=== PATIENT | male | born 1960 | race Caucasian/White ===

== ENCOUNTER 2016-08-29 20:30 | Inpatient (IN) | payer BC ==
[2016-08-29] MEDS ORDERED: NORMAL SALINE 10 ML SYRINGE FLUSH IVP PRN (21:31)
[2016-08-29] MEDS ORDERED: Sodium Chloride 0.9% 2,000 ML PRIMARY IV ONE (21:31)
[2016-08-29] MEDS ORDERED: MORPHINE SULFATE 4 MG/1 ML IVP ONE (21:31)
[2016-08-29] MEDS ORDERED: ONDANSETRON 4 MG/2 ML VIAL IVP ONE (21:32)
--- NOTE | 2016-08-29 21:34 | PDOC ---
Gen Adult / Medical Screen HPI - General Chief Complaint: General Medical Stated Complaint: ABDOMEN PAIN WITH POOR APETITE AND UNABLE TO VOID Date Seen by Provider: 08/29/16 Time Seen by Provider: 21:28 - History of Present Illness Initial Comments: Patient's very nice 56-year-old presents to the emergency department with complaints of inability to void. He's also had difficulty with some constipation lately. He's been trying not to drink much as he has difficulty voiding when he wants to PE and feels that it makes him uncomfortable so he doesn't do so. He says he has a red or pink tinged to his urinary does PE. He denies any zeeshan drainage or purulence from his penis. No significant testicular pain or issues no significant hematochezia hematemesis. He is not nauseated or vomiting. He denies any longer heart or chest issues. Has had some low-grade fever and felt chilled at times. - Patient Home Medications Home Medications: Home Medications NK [No Home Medications Reported] 08/29/16 - Patient Allergies Allergies/Adverse Reactions: Allergies Allergy/AdvReac Type Severity Reaction Status Date / Time No Known Allergies Allergy Verified 08/29/16 21:00 Past Medical History - heen HEENT History: Denies History Cardiovascular History: Denies History Respiratory History: Denies History Gastrointestinal History: Denies History Genitourinary History: Denies History Endocrine History: Denies History Musculoskeletal History: Denies History Neurological History: Denies History Blood Disorders: Denies History Psychiatric History: Denies History History of Sexually Transmitted Diseases: No Male Reproductive History: Denies History Cancer History: Denies History In Past Year Been Physically Harmed or Verbally Threatened: No History of MDRO: No History of Other Communicable Diseases: No Tobacco Use: Never Smoker Alcohol Use: Other Substance Use Type: None Previous Surgical History: No Significant Family History: No pertinent family hx Past Medical History Reviewed: Reviewed - No Changes ROS - Limitations ROS Limitations: No Limitations Cardiovascular: REPORTS: Denies Cardiac Symptoms Respiratory: REPORTS: Denies Resp Symptoms Neurological: REPORTS: Denies Neuro Symptoms Gen Adult/Medical Screen Exam - General Appearance General Appearance: POSITIVE: Alert, Cooperative - HEENT HEENT: POSITIVE: Head Inspection Nml, Eyes Inspection Nml - Neck Neck: POSITIVE: Normal Inspection - Respiratory Respiratory: POSITIVE: No Respiratory Distress, Breath Sounds Normal - Cardiovascular Cardiovascular: POSITIVE: Regular Rate & Rhythm, No Murmur - Abdomen Additional Abdominal Details: Significant tenderness in the low abdomen with some guarding in both right and left lower quadrants. Genitalia are benign testicles are benign no hernias noted Gen Adlt/Medical Scrn Progress - Results Reviewed by me Xrays/CTs/US Reviewed by me: Yes Radiology Findings: Acute diverticulitis Lab Results Reviewed: Yes Lab Results:: Laboratory Results 08/29/16 08/29/16 Range/Units 21:00 21:34 WBC 11.31 H (4.8-10.8) 10^3/uL RBC 5.09 (4.70-6.10) 10^6/uL Hgb 15.0 (14.0-18.0) g/dL Hct 44.1 (42.0-52.0) % MCV 86.6 (80-90) FL MCH 29.5 (27-31) PG MCHC 34.0 (33-37) g/dL RDW Std Deviation 40.8 (39-50) fL RDW Coeff of Mateus 13.1 (11.5-14.5) % Plt Count 226 (140-350) 10*3/uL MPV 9.4 (7.4-12.2) FL Immature Gran % (Auto) 0.3 (0-5) % Neut % (Auto) 84.0 H (50-80) % Lymph % (Auto) 7.5 L (10-50) % [place] % (Auto) 8.0 (5-15) % Eos % (Auto) 0 (0-8) % Baso % (Auto) 0.2 (0-1) % Immature Gran # (Auto) 0.03 10*3/UL Neut # (Auto) 9.51 10*3/UL Lymph # (Auto) 0.85 10*3/uL [place] # (Auto) 0.90 H (0.3-0.8) 10*3/UL Eos # (Auto) 0 10*3/UL Baso # (Auto) 0.02 10*3/UL WBC Morphology Comment Normal morphology (NORM) Plt Morphology Comment Normal morphology (NORM) RBC Morph Comment Normal morphology (NORM) Sodium 139 (135-145) meq/L Potassium 4.0 (3.8-5.2) meq/L Chloride 101 (98-112) meq/L Carbon Dioxide 28 (23-33) meq/L Anion Gap 10 (5-20) BUN 16 (7-22) mg/dL Creatinine 0.9 (0.70-1.50) mg/dL Estimated GFR > 60 (>60 ml/min/1.73m(2)) BUN/Creatinine Ratio 17.77 (6-20) Glucose 95 (78-110) mg/dL Calculated Osmolality 288.0 (267-292) mOsm/kg Lactic Acid 0.6 L (0.70-2.10) MMOL/L Calcium 8.9 (8.7-10.7) mg/dL Total Bilirubin 2.1 H (0.3-1.2) mg/dL AST 16 L (21-57) IU/L ALT 30 (21-72) IU/L Alkaline Phosphatase 58 (38-126) IU/L Total Protein 7.0 (6.1-8.0) g/dL Albumin 4.0 (3.5-4.8) g/dL Globulin 3.0 (2.50-4.10) g/dL Albumin/Globulin Ratio 1.30 (1.3-2.0) mg/g Ur Collection Type Void Urine Color Lindsay Urine Clarity Clear (CLEAR) Urine pH 5.5 (5.0-8.5) Ur Specific [place] 1.020 (1.005-1.030) Urine Protein 30 (NEG) mg/dl Urine Glucose (UA) Negative (NEG) mg/dL Urine Ketones 80 (NEG) Urine Occult Blood Trace-lysed H (NEG) Urine Nitrate Positive H (NEG) Urine Bilirubin Moderate (NEG) Urine Urobilinogen 4.0 (0.2) EU/dL Ur Leukocyte Esterase Negative (NEG) Urine RBC 0-1 (NONE) /hpf Urine WBC 3-5 (NONE) Ur Squamous Epith Cells None (NONE) Ur Renal Epithelial Cell None (NONE) Urine Crystals None Urine Bacteria Moderate (NONE) Urine Casts None (NONE) Urine Mucus Many (NONE) Urine Trichomonas None (NONE) Urine Yeast None (NONE) Ur Culture Indicated? Culture set - Patient's Progress MDM / ED Course: This patient had significant left abdominal discomfort and high white blood cell count with left shift urinalysis was obtained and was mildly positive certainly didn't seem strong enough to be the source of all of his symptoms therefore CT scan of his abdomen was performed which shows a diverticulitis with possible small microperforation. Case was discussed with general surgeon cable television installer who agrees to see the patient in consult in the morning and recommended admission through the hospitalist. Hospitalist agreed to accept the patient for admission. Patient was given a 1 g Invanz dose after blood cultures and urinalysis had been obtained patient was given morphine for pain control. Patient Care Time - Estimated PCT Patient Care Time (In Minutes): 45 Vital Signs - Recent Vital Signs Vital Signs: Vital Signs (Last 8 hours) Temp Pulse Resp BP Pulse Ox 08/29/16 20:45 100.3 F H 87 18 148/84 96 - VS Reviewed Vital Signs Reviewed: Yes Discharge Clinical Impression: Acute diverticulitis Discharge Disposition: Admit to Inpatient Condition: Stable Date Decision to Admit to Inpatient: 08/29/16 Time Decision to Admit to Inpatient: 23:52
[2016-08-29 21:40] LABS: BASOPHILS # (AUTO) 0.02 10*3/UL; BASOPHILS % (AUTO) 0.2 % (0-1); EOSINOPHILS # (AUTO) 0 10*3/UL; EOSINOPHILS % (AUTO) 0 % (0-8); HEMATOCRIT 44.1 % (42.0-52.0); LYMPHOCYTES # (AUTO) 0.85 10*3/uL; MEAN CORPUSCULAR HEMOGLOBIN 29.5 PG (27-31); MEAN CORPUSCULAR VOLUME 86.6 FL (80-90); MEAN PLATELET VOLUME 9.4 FL (7.4-12.2); NEUTROPHILS # (AUTO) 9.51 10*3/UL; PLATELET MORPHOLOGY COMMENT NORMAL MORPHOLOGY (NORM); RBC MORPHOLOGY COMMENT NORMAL MORPHOLOGY (NORM); RED BLOOD COUNT 5.09 10^6/uL (4.70-6.10); WBC MORPHOLOGY COMMENT NORMAL MORPHOLOGY (NORM)
[2016-08-29 21:40] LABS: BILIRUBIN,URINE MODERATE (NEG); CLARITY,URINE CLEAR (CLEAR); GLUCOSE, URINE (UA) NEGATIVE (NEG); NITRATE,URINE POSITIVE (NEG); OCCULT BLOOD,URINE Trace-lysed (NEG); PH,URINE 5.5 (5.0-8.5); PROTEIN,URINE 30 mg/dl (NEG)
[2016-08-29 21:42] LABS: COLOR,URINE AMBER
[2016-08-29 21:43] LABS: BACTERIA,URINE MODERATE; RBC,URINE 0-1 /hpf; URINE SAMPLE TYPE VOID
[2016-08-29 21:43] LABS: BLOOD UREA NITROGEN 16 mg/dL (7-22); BUN/CREATININE RATIO 17.77 (6-20); CALCIUM 8.9 mg/dL (8.7-10.7); EST GLOMERULAR FILTRATION > 60 (>60 ml/min/1.73m(2))
[2016-08-29] MEDS ORDERED: Lactated Ringers 1,000 ML PRIMARY IV ONE (22:16)
[2016-08-29] MEDS ORDERED: Ertapenem Inj 1 GM in Sodium Chloride 0.9% 100 ML IV ONE (22:22)
--- NOTE | 2016-08-29 23:26 | DI ---
HISTORY: Bilateral lower abdominal and pelvic pain and leukocytosis. PREVIOUS EXAM: None at this facility. TECHNIQUE: Multiple helically acquired CT images are obtained through the abdomen and pelvis followi ng the intravenous administration of contrast media. FINDINGS: CT images demonstrate acute sigmoid diverticulitis. There appears to be a contained perfor ation, but there is no free air and no abscess at this time. Inflammatory changes also involve the ur inary bladder. There is a large simple cyst involving the right posterior kidney measuring 5.1 cm in length. Skeletal structures demonstrate diffuse degenerative changes without fractures. IMPRESSION: 1. Acute sigmoid diverticulitis with what appears to be a contained perforation, but no abscess at t his time.
[2016-08-30] MEDS ORDERED: ONDANSETRON 4 MG/2 ML VIAL IVP PRN (00:43)
[2016-08-30] MEDS ORDERED: LIDOCAINE W/ SODIUM BICARB 0.5 ML SYR SUBD PRN (00:43)
[2016-08-30] MEDS: HYDROmorphone 2 MG/1 ML IVP PRN ×3 (01:22→08:31)
[2016-08-30] MEDS: Sodium Chloride 0.9% 1,000 ML PRIMARY IV SCH ×3 (01:23→17:20)
[2016-08-30 05:24] LABS: BASOPHILS # (AUTO) 0.02 10*3/UL; BASOPHILS % (AUTO) 0.2 % (0-1); EOSINOPHILS # (AUTO) 0.01 10*3/UL; EOSINOPHILS % (AUTO) 0.1 % (0-8); HEMATOCRIT 42.2 % (42.0-52.0); HEMOGLOBIN 13.8 g/dL (14.0-18.0); LYMPHOCYTES # (AUTO) 1.09 10*3/uL; MEAN CORPUSCULAR HEMOGLOBIN 28.6 PG (27-31); MEAN CORPUSCULAR HGB CONC 32.7 g/dL (33-37); MEAN CORPUSCULAR VOLUME 87.4 FL (80-90); MEAN PLATELET VOLUME 9.8 FL (7.4-12.2); MONOCYTES % (AUTO) 9.1 % (5-15); NEUTROPHILS # (AUTO) 8.89 10*3/UL; NEUTROPHILS % (AUTO) 80.6 % (50-80); RED BLOOD COUNT 4.83 10^6/uL (4.70-6.10)
[2016-08-30 05:27] LABS: PLATELET MORPHOLOGY COMMENT NORMAL MORPHOLOGY (NORM); RBC MORPHOLOGY COMMENT NORMAL MORPHOLOGY (NORM); WBC MORPHOLOGY COMMENT NORMAL MORPHOLOGY (NORM)
[2016-08-30 05:43] LABS: BLOOD UREA NITROGEN 12 mg/dL (7-22); CALCIUM 8.2 mg/dL (8.7-10.7); EST GLOMERULAR FILTRATION > 60 (>60 ml/min/1.73m(2)); SERUM ALBUMIN 3.1 g/dL (3.5-4.8)
--- NOTE | 2016-08-30 08:17 | DI ---
CHEST X-RAY WITH ABDOMINAL SERIES, 08/29/2016 9:33 PM : Clinical History: Acute low abdominal pain. PA CHEST X-RAY: Previous Exam: 07/18/2015 There is no acute soft tissue or bony abnormality. There is no free air under the diaphragms. Heart s ize is normal. Lungs are clear. Mediastinal structures are normal. There are no pulmonary nodules. Reading: Normal PA chest x-ray. There has been no interval change. ABDOMINAL SERIES: Previous Exam: None at this facility. KUB and upright abdomen films are submitted. There are no soft tissue or bony abnormalities. Bowel ga s pattern, psoas margins, and flank stripes are normal. There is no free air or fluid. There are no a bnormal radiodensities. Reading: Normal abdominal series.
[2016-08-30] MEDS: Pantoprazole Inj 40 MG in Normal Saline Flush 10 ML IVP SCH (08:31)
[2016-08-30] MEDS: HYDROcodone-APAP 5 MG -325 MG TABLET PO PRN ×4 (08:32→21:22)
[2016-08-30] MEDS ORDERED: POLYETHYLENE GLYCOL 3350 17 GM POWDER PO ONE (11:12)
[2016-08-30] MEDS ORDERED: TAMSULOSIN 0.4 MG CAPSULE PO ONE (11:12)
--- NOTE | 2016-08-30 11:18 | PDOC ---
History and Physical - History of Present Illness Date and Time of Service: 08/30/2016, 11:15 Chief Complaint: Abdominal pain History of Present Illness: This very pleasant 56-year-old male who has really no past medical history that is a cavity by his and came in yesterday to the emergency room with complaints of lower abdominal pain for 3-4 days. He states that he felt some lower abdominal pressure, had a fever at one point, no nausea or vomiting, but states that eating and drinking made it worse. He is had similar pains in the past and she "constipation and thought he needed to pass a hard stool here but that did not seem to help the pain at all. After having a bowel movement and essentially crawling into bed the patient's thought that he needed evaluation and brought him in the next day. In the emergency room, he had an acute abdominal series, and his CT scan and was found to have sigmoid diverticulitis with what appears to be a microperforation that has walled off. He was placed on Invanz and surgery was contacted. They will see him later today in consultation. He's never had anything like this happen before. Seems to feel better today with some pain medications and IV antibiotics. Past Medical History Medical History: None Surgical History: None Pertinent Family History: The patient has an aunt that had colon cancer in the past, no history of diabetes or coronary artery disease in the family. Past Social History: Chews tobacco daily, 2 beers daily, 3. His that he is to now his primary 2 for 13 years. 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 Tobacco Use: Never Smoker Do you dip or chew tobacco: Yes Substance Use Type: None Alcohol Use: Other (Moderate alcohol use) Medication / Allergies Home Medications: Home Medications Medication Instructions Recorded Confirmed Type NK [No Home Medications Reported] 08/29/16 08/29/16 History Allergies/Adverse Reactions: Allergies Allergy/AdvReac Type Severity Reaction Status Date / Time No Known Allergies Allergy Verified 08/30/16 06:24 Review of Systems - Review of Systems All Systems: Reviewed & No Additional Complaints Except as Stated (I did a 12 point review systems and it was negative other than that discussed in the history of present illness and that noted below.) - Respiratory Respiratory: REPORTS: Negative System Review - Cardiovascular Cardiovascular: REPORTS: Negative System Review - Gastrointestinal Gastrointestinal / Abdominal: REPORTS: See HPI - Genitourinary Genitourinary: REPORTS: Hesitant Stream, Decreased Stream, Sexual Dyfunction ( Complains of loss of sexual drive, some difficulty with erections.) - Musculoskeletal Musculoskeletal: REPORTS: Other (Has stiffness in joints.) - Neurological Neurologic: REPORTS: Headache (On occasion.), Numbness/Paresthesia (Patient reports that he had facial numbness on the right side for about 3 months and then it resolved and got better. He had a negative head CT scan and workup for potential stroke. 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 It resolved and got better.) Exam - Vitals Vital Signs: Vital Signs Temperature 98.8 F Temperature Source Temporal Artery Scan Pulse Rate [Pulse Oximeter] 72 Respiratory Rate 16 Blood Pressure [Left Arm] 125/68 Pulse Ox 92 Oxygen Delivery Method Room Air Height 5 ft 9 in Weight 169 lb 9.6 oz - General General Appearance: POSITIVE: No Acute Distress, Cooperative - Head Head Exam: POSITIVE: Normal Inspection, Normocephalic, Atraumatic - Eye Eye Exam: POSITIVE: No Scleral Icterus - ENT ENT Exam: POSITIVE: Mucous Membranes Moist - Neck Neck Exam: POSITIVE: Normal Inspection, No Tenderness, No Thyromegaly - Respiratory Respiratory Exam: POSITIVE: Clear to Auscultation - Bilaterally, Breathing Non Labored, Normal to Percussion and Palpation - Cardiovascular Cardiovascular Exam: POSITIVE: RRR, No Murmur, No Clicks, No Gallops, No Rubs, No JVD - GI/Abdominal GI/Abdominal Exam: POSITIVE: Normal Bowel Sounds, Non Distended, Soft Additional GI/Abdominal Exam Details: Tender in lower quadrants, left greater than right. - Rectal Rectal Exam: POSITIVE: Normal Inspection, Normal Rectal Tone, Normal Prostate - External Exam: POSITIVE: Deferred Exam: POSITIVE: Deferred - Extremities Extremities Exam: POSITIVE: No Clubbing Present, No Edema Present, No Cyanosis Present - Back Back Exam: POSITIVE: Normal Inspection, No CVA Tenderness - Neurological Neurological Exam: POSITIVE: Alert, Oriented x 3, No Facial Droop, Speech Intact / Clear, Moves All Extremities Equally - Psychiatric Psychiatric Exam: POSITIVE: Normal Affect, Normal Mood - Integumentary Integumentary Exam: POSITIVE: Normal Color, Warm, Dry, Intact Results - Labs CBC and BMP: 08/30/16 04:38 08/30/16 04:38 Labs - Last 24 Hours: Laboratory Results 08/30/16 Range/Units 04:38 WBC 11.02 H (4.8-10.8) 10^3/uL RBC 4.83 (4.70-6.10) 10^6/uL Hgb 13.8 L (14.0-18.0) g/dL Hct 42.2 (42.0-52.0) % MCV 87.4 (80-90) FL MCH 28.6 (27-31) PG MCHC 32.7 L (33-37) g/dL RDW Std Deviation 40.9 (39-50) fL RDW Coeff of Mateus 13.1 (11.5-14.5) % Plt Count 193 (140-350) 10*3/uL MPV 9.8 (7.4-12.2) FL Immature Gran % (Auto) 0.1 (0-5) % Neut % (Auto) 80.6 H (50-80) % Lymph % (Auto) 9.9 L (10-50) % [place] % (Auto) 9.1 (5-15) % Eos % (Auto) 0.1 (0-8) % Baso % (Auto) 0.2 (0-1) % Immature Gran # (Auto) 0.01 10*3/UL Neut # (Auto) 8.89 10*3/UL Lymph # (Auto) 1.09 10*3/uL [place] # (Auto) 1.00 H (0.3-0.8) 10*3/UL Eos # (Auto) 0.01 10*3/UL Baso # (Auto) 0.02 10*3/UL WBC Morphology Comment Normal morphology (NORM) Plt Morphology Comment Normal morphology (NORM) RBC Morph Comment Normal morphology (NORM) Sodium 138 (135-145) meq/L Potassium 4.0 (3.8-5.2) meq/L Chloride 106 (98-112) meq/L Carbon Dioxide 24 (23-33) meq/L Anion Gap 8 (5-20) BUN 12 (7-22) mg/dL Creatinine 0.8 (0.70-1.50) mg/dL Estimated GFR > 60 (>60 ml/min/1.73m(2)) BUN/Creatinine Ratio 15.00 (6-20) Glucose 85 (78-110) mg/dL Calculated Osmolality 284.0 (267-292) mOsm/kg Lactic Acid 0.6 L (0.70-2.10) MMOL/L Calcium 8.2 L (8.7-10.7) mg/dL Total Bilirubin 1.6 H (0.3-1.2) mg/dL AST 11 L (21-57) IU/L ALT 27 (21-72) IU/L Alkaline Phosphatase 48 (38-126) IU/L Total Protein 5.9 L (6.1-8.0) g/dL Albumin 3.1 L (3.5-4.8) g/dL Globulin 2.8 (2.50-4.10) g/dL Albumin/Globulin Ratio 1.10 L (1.3-2.0) mg/g - Imaging Status: Image Reviewed by Me (Acute abdominal series was done, my view negative chest x-ray and negative abdominal series. CT scan of the abdomen and pelvis was done. Radiologist felt that there was a sigmoid diverticuli that appeared to have a microperforation and was walled off.) Assessment and Plan - Patient Problems (1) Acute diverticulitis Current Visit: Yes Status: Acute (2) Perforation of sigmoid colon Current Visit: Yes Status: Acute (3) Benign prostatic hypertrophy Current Visit: Yes Status: Acute Qualifiers: Prostatic enlargement morphology: non-nodular Lower urinary tract symptom presence: symptoms present Qualified Description: Benign non- nodular prostatic hyperplasia with lower urinary tract symptoms Qualifier Code(s): (N40.1) Benign prostatic hyperplasia with lower urinary tract symptoms (4) History of Shepard's palsy Current Visit: Yes Status: Acute - Assessment / Plan Additional Assessment/Plan Details: Admit the patient. Invanz IV, may want to consider a course of 10-14 days of antibiotics. We can consider response to Invanz therapy before switching to by mouth antibiotics but may be in this particular case, we can consider IV antibiotics through the duration. We will see what Dr. Gonzalez thinks when he sees the patient as well. I think for the BPH symptoms, start Flomax and see how well that works. The patient mentioned some sexual dysfunction symptoms, check testosterone levels. He might be a very good candidate for Cialis for his prostate and the symptoms as well. Start MiraLAX for what sounds like constipation. No further workup for the history of Shepard's palsy. Encouraged tobacco cessation. Check labs tomorrow including white count. IV fluids and clear liquid diet for now. Patient is full code. I discussed above plan with patient and his and they agreed. Photo / Body Diagrams - Uploaded Photos Uploaded Photos:
[2016-08-30] MEDS ORDERED: HYDROmorphone 2 MG/1 ML IVP PRN (12:46)
--- NOTE | 2016-08-30 12:56 | CONSULT ---
Consult Note - Consult Consult Date: 08/30/16 Reason for Consult: PreOp Consulation : General Surgery Requesting Physician: Dr. Cesia Barbosa Primary Care Provider: Nabil Song MD - History of Present Illness History of Present Illness: Patient is a 56-year-old admitted through the ER last night for acute diverticulitis. I'm asked to see him in consultation. Patient reports he's had bowel problems for about the last year. He has diarrhea alternating with constipation. He has some cramping in his pelvis. He sees occasional blood on the toilet paper. He has had some voiding difficulty as well. He reports his urine has been orange and very dark. On Saturday he developed markedly increased lower abdominal pain and pressure. He felt feverish and had chills. He had some nausea without vomiting. He went to bed and got up and went to work on Saturday. After work he came into the emergency room for progressive pain. He was seen and evaluated. A CAT scan was done. This shows diverticulitis with a possible contained perforation. There is possibly some air extraluminal but it is difficult to tell whether this is just another large tic. There is pericolonic stranding. There is no free air, no free fluid, and no abscess cavity. There is some inflammation around the bladder as well. I personally reviewed this film with our local radiologist. White count was slightly elevated at 11.5. Patient was admitted to the hospitalist service I'm asked to see him for evaluation. Patient has never had a colonoscopy. He has an Aunt who had colon cancer. He has never had a bout of diverticulitis before. His last bowel movement was approximately 2 days ago. Reports he had small round stools. He feels he could have a bowel movement but is unable to. He last passed gas about 2 days ago as well. Review of Systems - Constitutional Constitutional: REPORTS: Fever/Chills - Gastrointestinal Gastrointestinal / Abdominal: REPORTS: Nausea, Diarrhea, Constipation, Abdominal Pain, Poor Appetite, Bright Red Blood Per Rectum, See HPI Past Medical History Medical History: No significant medical problems. Surgical History: No prior surgical procedures. Pertinent Family History: The patient has an aunt that had colon cancer in the past, no history of diabetes or coronary artery disease in the family. Past Social History: Chews tobacco daily, 2 beers daily, 3. His that he is to now his primary 2 for 13 years. 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 Tobacco Use: Never Smoker Do you dip or chew tobacco: Yes Substance Use Type: None Alcohol Use: Other (Moderate alcohol use) Medication / Allergies Home Medications: Home Medications Medication Instructions Recorded Confirmed Type NK [No Home Medications Reported] 08/29/16 08/29/16 History Allergies/Adverse Reactions: Allergies Allergy/AdvReac Type Severity Reaction Status Date / Time No Known Allergies Allergy Verified 08/30/16 06:24 Exam - Vitals Vital Signs: Vital Signs Temperature 97.2 F Temperature Source Temporal Artery Scan Pulse Rate [Pulse Oximeter] 70 Respiratory Rate 16 Blood Pressure [Left Arm] 118/68 Pulse Ox 91 Oxygen Delivery Method Room Air Height 5 ft 9 in Weight 76.929 kg - General General Appearance: POSITIVE: No Acute Distress, Cooperative - Respiratory Respiratory Exam: POSITIVE: Clear to Auscultation - Bilaterally, Breathing Non Labored - Cardiovascular Cardiovascular Exam: POSITIVE: RRR, No Murmur - GI/Abdominal GI/Abdominal Exam: POSITIVE: Non Distended, Soft, Guarding (Lower abdomen.), Diminished Bowel Sounds, Rebound (Suprapubic.) Additional GI/Abdominal Exam Details: He is very tender in the suprapubic region and left lower quadrant. He can relax his abdomen. He has guarding and mild rebound. There is a fullness but no discrete mass. There is no costovertebral angle tenderness. - Rectal Rectal Exam: POSITIVE: Deferred - Neurological Neurological Exam: POSITIVE: Alert, Oriented x 3 - Psychiatric Psychiatric Exam: POSITIVE: Normal Affect, Normal Mood - Integumentary Integumentary Exam: POSITIVE: Normal Color, Warm, Dry, Intact Results - Labs CBC and BMP: 08/30/16 04:38 08/30/16 04:38 Labs - Last 24 Hours: Laboratory Results 08/30/16 Range/Units 04:38 WBC 11.02 H (4.8-10.8) 10^3/uL RBC 4.83 (4.70-6.10) 10^6/uL Hgb 13.8 L (14.0-18.0) g/dL Hct 42.2 (42.0-52.0) % MCV 87.4 (80-90) FL MCH 28.6 (27-31) PG MCHC 32.7 L (33-37) g/dL RDW Std Deviation 40.9 (39-50) fL RDW Coeff of Mateus 13.1 (11.5-14.5) % Plt Count 193 (140-350) 10*3/uL MPV 9.8 (7.4-12.2) FL Immature Gran % (Auto) 0.1 (0-5) % Neut % (Auto) 80.6 H (50-80) % Lymph % (Auto) 9.9 L (10-50) % [place] % (Auto) 9.1 (5-15) % Eos % (Auto) 0.1 (0-8) % Baso % (Auto) 0.2 (0-1) % Immature Gran # (Auto) 0.01 10*3/UL Neut # (Auto) 8.89 10*3/UL Lymph # (Auto) 1.09 10*3/uL [place] # (Auto) 1.00 H (0.3-0.8) 10*3/UL Eos # (Auto) 0.01 10*3/UL Baso # (Auto) 0.02 10*3/UL WBC Morphology Comment Normal morphology (NORM) Plt Morphology Comment Normal morphology (NORM) RBC Morph Comment Normal morphology (NORM) Sodium 138 (135-145) meq/L Potassium 4.0 (3.8-5.2) meq/L Chloride 106 (98-112) meq/L Carbon Dioxide 24 (23-33) meq/L Anion Gap 8 (5-20) BUN 12 (7-22) mg/dL Creatinine 0.8 (0.70-1.50) mg/dL Estimated GFR > 60 (>60 ml/min/1.73m(2)) BUN/Creatinine Ratio 15.00 (6-20) Glucose 85 (78-110) mg/dL Calculated Osmolality 284.0 (267-292) mOsm/kg Lactic Acid 0.6 L (0.70-2.10) MMOL/L Calcium 8.2 L (8.7-10.7) mg/dL Total Bilirubin 1.6 H (0.3-1.2) mg/dL AST 11 L (21-57) IU/L ALT 27 (21-72) IU/L Alkaline Phosphatase 48 (38-126) IU/L Total Protein 5.9 L (6.1-8.0) g/dL Albumin 3.1 L (3.5-4.8) g/dL Globulin 2.8 (2.50-4.10) g/dL Albumin/Globulin Ratio 1.10 L (1.3-2.0) mg/g - Imaging Status: Image Reviewed by Me (With the radiologist.), Report Reviewed by Me Assessment and Plan - Patient Problems (1) Acute diverticulitis Current Visit: Yes Status: Acute Priority: High Diagnosis Date: 08/29/16 Comment: This is a significant bout of acute diverticulitis. There is a lot of inflammatory changes and possibly a contained perforation. See below. It is reasonable to try conservative therapy. I would recommend 4-5 days of IV antibiotics followed by a full 10 days of oral antibiotics. If all goes well he should follow up with me as an outpatient and we will plan colonoscopy in 6- 8 weeks. He should be seen in the office prior to completing his antibiotics. Based on the findings on the CT scan he should consider an elective colectomy in the future to avoid ongoing problems. If he deteriorates or fails to improve after 4-5 days of IV antibiotics will need to consider a colectomy with temporary colostomy. I would strongly consider a follow-up CT in 3-4 days to see if we are making progress unless his clinical exam is markedly improved at that time. I have discussed all the above and below in detail with the patient and Dr. Callaway. We will proceed as outlined. Patient understands I am leaving town tomorrow. Dr. Salinas we will look in on him in my absence. (2) Perforation of sigmoid colon Current Visit: Yes Status: Acute Priority: High Diagnosis Date: 08/29/16 Comment: Possible. It is unclear whether he has extraluminal gas or just multiple diverticuli. At any rate this is contained without free air, free fluid, or an obvious abscess. It should be amenable to a trial of conservative therapy.
[2016-08-30] MEDS: Ertapenem Inj 1 GM in Sodium Chloride 0.9% 100 ML IV SCH (21:00)
[2016-08-31] MEDS: Sodium Chloride 0.9% 1,000 ML PRIMARY IV SCH ×3 (01:00→18:31)
[2016-08-31] MEDS: HYDROcodone-APAP 5 MG -325 MG TABLET PO PRN ×5 (02:26→20:30)
[2016-08-31 05:12] LABS: BASOPHILS # (AUTO) 0.01 10*3/UL; BASOPHILS % (AUTO) 0.1 % (0-1); EOSINOPHILS # (AUTO) 0.02 10*3/UL; EOSINOPHILS % (AUTO) 0.2 % (0-8); HEMATOCRIT 38.4 % (42.0-52.0); HEMOGLOBIN 12.5 g/dL (14.0-18.0); LYMPHOCYTES # (AUTO) 0.85 10*3/uL; MEAN CORPUSCULAR HEMOGLOBIN 28.6 PG (27-31); MEAN CORPUSCULAR HGB CONC 32.6 g/dL (33-37); MEAN CORPUSCULAR VOLUME 87.9 FL (80-90); MEAN PLATELET VOLUME 9.8 FL (7.4-12.2); MONOCYTES # (AUTO) 0.67 10*3/UL (0.3-0.8); MONOCYTES % (AUTO) 7.5 % (5-15); NEUTROPHILS # (AUTO) 7.42 10*3/UL; NEUTROPHILS % (AUTO) 82.6 % (50-80); RED BLOOD COUNT 4.37 10^6/uL (4.70-6.10)
[2016-08-31 05:28] LABS: PLATELET MORPHOLOGY COMMENT NORMAL MORPHOLOGY (NORM); RBC MORPHOLOGY COMMENT NORMAL MORPHOLOGY (NORM); WBC MORPHOLOGY COMMENT NORMAL MORPHOLOGY (NORM)
[2016-08-31 05:40] LABS: BLOOD UREA NITROGEN 5 mg/dL (7-22); BUN/CREATININE RATIO 7.14 (6-20); EST GLOMERULAR FILTRATION > 60 (>60 ml/min/1.73m(2))
[2016-08-31] MEDS: Pantoprazole Inj 40 MG in Normal Saline Flush 10 ML IVP SCH (08:57)
[2016-08-31] MEDS: TAMSULOSIN 0.4 MG CAPSULE PO SCH (08:58)
[2016-08-31] MEDS ORDERED: POLYETHYLENE GLYCOL 3350 17 GM POWDER PO SCH (09:00)
[2016-08-31] MEDS ORDERED: POTASSIUM CHLORIDE 20 MEQ TAB PO ONE (10:26)
--- NOTE | 2016-08-31 11:05 | PDOC(PROG) ---
Date and Time of Service: 09/03/2016 at 1110 Interval History: Patient states that he is little bit better. Objective : Data - Labs CBC and BMP: 08/31/16 04:43 08/31/16 04:43 Labs - Last 24 Hours: Laboratory Results 08/31/16 Range/Units 04:43 WBC 8.98 (4.8-10.8) 10^3/uL RBC 4.37 L (4.70-6.10) 10^6/uL Hgb 12.5 L (14.0-18.0) g/dL Hct 38.4 L (42.0-52.0) % MCV 87.9 (80-90) FL MCH 28.6 (27-31) PG MCHC 32.6 L (33-37) g/dL RDW Std Deviation 40.8 (39-50) fL RDW Coeff of [place] 12.8 (11.5-14.5) % Plt Count 199 (140-350) 10*3/uL MPV 9.8 (7.4-12.2) FL Immature Gran % (Auto) 0.1 (0-5) % Neut % (Auto) 82.6 H (50-80) % Lymph % (Auto) 9.5 L (10-50) % [place] % (Auto) 7.5 (5-15) % Eos % (Auto) 0.2 (0-8) % Baso % (Auto) 0.1 (0-1) % Immature Gran # (Auto) 0.01 10*3/UL Neut # (Auto) 7.42 10*3/UL Lymph # (Auto) 0.85 10*3/uL [place] # (Auto) 0.67 (0.3-0.8) 10*3/UL Eos # (Auto) 0.02 10*3/UL Baso # (Auto) 0.01 10*3/UL WBC Morphology Comment Normal morphology (NORM) Plt Morphology Comment Normal morphology (NORM) RBC Morph Comment Normal morphology (NORM) Sodium 135 (135-145) meq/L Potassium 3.5 L (3.8-5.2) meq/L Chloride 105 (98-112) meq/L Carbon Dioxide 24 (23-33) meq/L Anion Gap 6 (5-20) BUN 5 L (7-22) mg/dL Creatinine 0.7 (0.70-1.50) mg/dL Estimated GFR > 60 (>60 ml/min/1.73m(2)) BUN/Creatinine Ratio 7.14 (6-20) Glucose 85 (78-110) mg/dL Calculated Osmolality 275.0 (267-292) mOsm/kg Calcium 8.0 L (8.7-10.7) mg/dL - Vital Signs Vital Signs and I&O: Vital Signs - Last Taken Temperature 98.8 F 08/31/16 09:00 Pulse Rate 64 08/31/16 09:00 Respiratory Rate 16 08/31/16 09:00 Blood Pressure 125/65 08/31/16 09:00 Pulse Ox 93 08/31/16 09:00 Intake and Output (24hr x 4 totals) 08/29/16 08/30/16 08/31/16 09/01/16 05:59 05:59 05:59 05:59 Intake Total 6129 Output Total 200 1850 800 Balance -200 3444 -800 Objective : Exam - General General Appearance: No Acute Distress, Cooperative - GI/Abdominal Additional GI/Abdominal Exam Details: Patient's abdomen is soft there is a fullness to the suprapubic area which is slightly tender. There is no true rebound Assessment and Plan - Patient Problems (1) Acute diverticulitis Current Visit: Yes Status: Acute Priority: High Diagnosis Date: 08/29/16 - Assessment / Plan Additional Assessment/Plan Details: I would continue the gentleman I liquid diet and also antibiotics
--- NOTE | 2016-08-31 14:04 | PDOC(PROG) ---
Date and Time of Service: 08/31/2016, 1404 Interval History: Feels better in terms of pain. Less nausea, no vomiting. No chest pain and no shortness of breath. Urinating frequently. Objective : Data - Labs CBC and BMP: 08/31/16 04:43 08/31/16 04:43 Labs - Last 24 Hours: Laboratory Results 08/31/16 Range/Units 04:43 WBC 8.98 (4.8-10.8) 10^3/uL RBC 4.37 L (4.70-6.10) 10^6/uL Hgb 12.5 L (14.0-18.0) g/dL Hct 38.4 L (42.0-52.0) % MCV 87.9 (80-90) FL MCH 28.6 (27-31) PG MCHC 32.6 L (33-37) g/dL RDW Std Deviation 40.8 (39-50) fL RDW Coeff of [place] 12.8 (11.5-14.5) % Plt Count 199 (140-350) 10*3/uL MPV 9.8 (7.4-12.2) FL Immature Gran % (Auto) 0.1 (0-5) % Neut % (Auto) 82.6 H (50-80) % Lymph % (Auto) 9.5 L (10-50) % [place] % (Auto) 7.5 (5-15) % Eos % (Auto) 0.2 (0-8) % Baso % (Auto) 0.1 (0-1) % Immature Gran # (Auto) 0.01 10*3/UL Neut # (Auto) 7.42 10*3/UL Lymph # (Auto) 0.85 10*3/uL [place] # (Auto) 0.67 (0.3-0.8) 10*3/UL Eos # (Auto) 0.02 10*3/UL Baso # (Auto) 0.01 10*3/UL WBC Morphology Comment Normal morphology (NORM) Plt Morphology Comment Normal morphology (NORM) RBC Morph Comment Normal morphology (NORM) Sodium 135 (135-145) meq/L Potassium 3.5 L (3.8-5.2) meq/L Chloride 105 (98-112) meq/L Carbon Dioxide 24 (23-33) meq/L Anion Gap 6 (5-20) BUN 5 L (7-22) mg/dL Creatinine 0.7 (0.70-1.50) mg/dL Estimated GFR > 60 (>60 ml/min/1.73m(2)) BUN/Creatinine Ratio 7.14 (6-20) Glucose 85 (78-110) mg/dL Calculated Osmolality 275.0 (267-292) mOsm/kg Calcium 8.0 L (8.7-10.7) mg/dL Objective : Exam - General General Appearance: No Acute Distress, Cooperative Additional General Exam Details: Vital Signs - Last Taken Temperature 98 F 08/31/16 13:00 Pulse Rate 59 L 08/31/16 13:00 Respiratory Rate 16 08/31/16 13:00 Blood Pressure 126/65 08/31/16 13:00 Pulse Ox 96 08/31/16 13:00 - Eye Eye Exam: No Scleral Icterus - Respiratory Respiratory Exam: Clear to Auscultation - Bilaterally, Breathing Non Labored - Cardiovascular Cardiovascular Exam: RRR, No Murmur, No Clicks, No Gallops, No Rubs, No JVD - GI/Abdominal GI/Abdominal Exam: Normal Bowel Sounds, Non Tender, Non Distended, Soft - Extremities Extremities Exam: No Clubbing Present, No Edema Present, No Cyanosis Present - Neurological Neurological Exam: Alert, Oriented x 3, No Facial Droop, Speech Intact / Clear, Moves All Extremities Equally Assessment and Plan - Patient Problems (1) Acute diverticulitis Current Visit: Yes Status: Acute Priority: High Diagnosis Date: 08/29/16 Comment: Date 2 of antibiotic therapy. 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 Probably stop fluids tomorrow if patient is tolerating a little better diet. Still on clears for now. I'd like to make sure the patient stays well hydrated. Today is day 2 of 10-14 of antibiotics. Eventual colonoscopy as an outpatient in 6-8 weeks. Thus far, no evidence that this is worsening or that the patient will require immediate or emergent surgery or percutaneous draining. Continue Flomax, I'd expect about a week before really starts to help. Check labs tomorrow. Photo / Body Diagrams - Uploaded Photos Uploaded Photos:
[2016-08-31] MEDS: Ertapenem Inj 1 GM in Sodium Chloride 0.9% 100 ML IV SCH (20:30)
[2016-09-01] MEDS: HYDROcodone-APAP 5 MG -325 MG TABLET PO PRN ×5 (01:14→21:08)
[2016-09-01] MEDS: Sodium Chloride 0.9% 1,000 ML PRIMARY IV SCH ×2 (02:08→11:29)
[2016-09-01 05:40] LABS: BASOPHILS # (AUTO) 0.01 10*3/UL; BASOPHILS % (AUTO) 0.1 % (0-1); EOSINOPHILS # (AUTO) 0.05 10*3/UL; EOSINOPHILS % (AUTO) 0.6 % (0-8); HEMATOCRIT 37.6 % (42.0-52.0); HEMOGLOBIN 12.3 g/dL (14.0-18.0); MEAN CORPUSCULAR HEMOGLOBIN 28.7 PG (27-31); MEAN CORPUSCULAR HGB CONC 32.7 g/dL (33-37); MEAN CORPUSCULAR VOLUME 87.9 FL (80-90); MEAN PLATELET VOLUME 9.9 FL (7.4-12.2); MONOCYTES # (AUTO) 0.57 10*3/UL (0.3-0.8); MONOCYTES % (AUTO) 7.3 % (5-15); NEUTROPHILS # (AUTO) 6.12 10*3/UL; RED BLOOD COUNT 4.28 10^6/uL (4.70-6.10)
[2016-09-01 05:51] LABS: BLOOD UREA NITROGEN 4 mg/dL (7-22); CALCIUM 8.2 mg/dL (8.7-10.7); EST GLOMERULAR FILTRATION > 60 (>60 ml/min/1.73m(2))
[2016-09-01 05:52] LABS: PLATELET MORPHOLOGY COMMENT NORMAL MORPHOLOGY (NORM); RBC MORPHOLOGY COMMENT NORMAL MORPHOLOGY (NORM); WBC MORPHOLOGY COMMENT NORMAL MORPHOLOGY (NORM)
[2016-09-01] MEDS ORDERED: POTASSIUM CHLORIDE 20 MEQ TAB PO ONE (06:33)
--- NOTE | 2016-09-01 08:45 | PDOC(PROG) ---
Date and Time of Service: 08/02/2016 at 845 Interval History: Patient states that he still little bit better. Denies and fevers had a bowel movement Objective : Data - Labs CBC and BMP: 09/01/16 04:50 09/01/16 04:50 Labs - Last 24 Hours: Laboratory Results 08/31/16 09/01/16 Range/Units 04:43 04:50 WBC 7.76 (4.8-10.8) 10^3/uL RBC 4.28 L (4.70-6.10) 10^6/uL Hgb 12.3 L (14.0-18.0) g/dL Hct 37.6 L (42.0-52.0) % MCV 87.9 (80-90) FL MCH 28.7 (27-31) PG MCHC 32.7 L (33-37) g/dL RDW Std Deviation 39.6 (39-50) fL RDW Coeff of [place] 12.6 (11.5-14.5) % Plt Count 215 (140-350) 10*3/uL MPV 9.9 (7.4-12.2) FL Immature Gran % (Auto) 0.1 (0-5) % Neut % (Auto) 79.0 (50-80) % Lymph % (Auto) 12.9 (10-50) % [place] % (Auto) 7.3 (5-15) % Eos % (Auto) 0.6 (0-8) % Baso % (Auto) 0.1 (0-1) % Immature Gran # (Auto) 0.01 10*3/UL Neut # (Auto) 6.12 10*3/UL Lymph # (Auto) 1.00 10*3/uL [place] # (Auto) 0.57 (0.3-0.8) 10*3/UL Eos # (Auto) 0.05 10*3/UL Baso # (Auto) 0.01 10*3/UL WBC Morphology Comment Normal morphology (NORM) Plt Morphology Comment Normal morphology (NORM) RBC Morph Comment Normal morphology (NORM) Sodium 138 (135-145) meq/L Potassium 3.6 L (3.8-5.2) meq/L Chloride 106 (98-112) meq/L Carbon Dioxide 25 (23-33) meq/L Anion Gap 7 (5-20) BUN 4 L (7-22) mg/dL Creatinine 0.8 (0.70-1.50) mg/dL Estimated GFR > 60 (>60 ml/min/1.73m(2)) BUN/Creatinine Ratio 5.00 L (6-20) Glucose 74 L (78-110) mg/dL Calculated Osmolality 281.0 (267-292) mOsm/kg Calcium 8.2 L (8.7-10.7) mg/dL PSA Screen 0.394 (0.006-4.00) ng/ml - Vital Signs Vital Signs and I&O: Vital Signs - Last Taken Temperature 97.2 F 09/01/16 06:48 Pulse Rate 57 L 09/01/16 06:48 Respiratory Rate 16 09/01/16 06:48 Blood Pressure 140/68 09/01/16 06:48 Pulse Ox 94 09/01/16 06:48 Intake and Output (24hr x 4 totals) 08/30/16 08/31/16 09/01/16 09/02/16 05:59 05:59 05:59 05:59 Intake Total 6129 3827 Output Total 200 1850 3150 Balance -200 4279 677 Objective : Exam - General General Appearance: No Acute Distress, Cooperative - GI/Abdominal GI/Abdominal Exam: Non Distended, Soft Additional GI/Abdominal Exam Details: Patient still has little bit suprapubic tenderness but less than was yesterday. Otherwise abdomen is benign. No rebound or rigidity. Assessment and Plan - Patient Problems (1) Acute diverticulitis Current Visit: Yes Status: Acute Priority: High Diagnosis Date: 08/29/16 - Assessment / Plan Additional Assessment/Plan Details: Would continue the course of antibiotic therapy. May advance diet to full liquid
[2016-09-01] MEDS: Pantoprazole Inj 40 MG in Normal Saline Flush 10 ML IVP SCH (09:10)
[2016-09-01] MEDS: TAMSULOSIN 0.4 MG CAPSULE PO SCH (09:11)
--- NOTE | 2016-09-01 14:57 | PDOC(PROG) ---
Date and Time of Service: 09/01/2016, 1455 Interval History: States that pain has reduced by about 60-70% from admission. He is tolerating a liquid diet was advanced to a full liquid diet today. Passing some liquid stools. No chest pain and no shortness breath. No nausea or vomiting. Objective : Data - Labs CBC and BMP: 09/01/16 04:50 09/01/16 04:50 Labs - Last 24 Hours: Laboratory Results 08/31/16 09/01/16 Range/Units 04:43 04:50 WBC 7.76 (4.8-10.8) 10^3/uL RBC 4.28 L (4.70-6.10) 10^6/uL Hgb 12.3 L (14.0-18.0) g/dL Hct 37.6 L (42.0-52.0) % MCV 87.9 (80-90) FL MCH 28.7 (27-31) PG MCHC 32.7 L (33-37) g/dL RDW Std Deviation 39.6 (39-50) fL RDW Coeff of [place] 12.6 (11.5-14.5) % Plt Count 215 (140-350) 10*3/uL MPV 9.9 (7.4-12.2) FL Immature Gran % (Auto) 0.1 (0-5) % Neut % (Auto) 79.0 (50-80) % Lymph % (Auto) 12.9 (10-50) % [place] % (Auto) 7.3 (5-15) % Eos % (Auto) 0.6 (0-8) % Baso % (Auto) 0.1 (0-1) % Immature Gran # (Auto) 0.01 10*3/UL Neut # (Auto) 6.12 10*3/UL Lymph # (Auto) 1.00 10*3/uL [place] # (Auto) 0.57 (0.3-0.8) 10*3/UL Eos # (Auto) 0.05 10*3/UL Baso # (Auto) 0.01 10*3/UL WBC Morphology Comment Normal morphology (NORM) Plt Morphology Comment Normal morphology (NORM) RBC Morph Comment Normal morphology (NORM) Sodium 138 (135-145) meq/L Potassium 3.6 L (3.8-5.2) meq/L Chloride 106 (98-112) meq/L Carbon Dioxide 25 (23-33) meq/L Anion Gap 7 (5-20) BUN 4 L (7-22) mg/dL Creatinine 0.8 (0.70-1.50) mg/dL Estimated GFR > 60 (>60 ml/min/1.73m(2)) BUN/Creatinine Ratio 5.00 L (6-20) Glucose 74 L (78-110) mg/dL Calculated Osmolality 281.0 (267-292) mOsm/kg Calcium 8.2 L (8.7-10.7) mg/dL PSA Screen 0.394 (0.006-4.00) ng/ml Objective : Exam - General General Appearance: No Acute Distress, Cooperative Additional General Exam Details: Vital Signs - Last Taken Temperature 98.4 F 09/01/16 12:43 Pulse Rate 73 09/01/16 12:43 Respiratory Rate 16 09/01/16 12:43 Blood Pressure 136/66 09/01/16 12:43 Pulse Ox 95 09/01/16 12:43 - Head Head Exam: Normal Inspection, Normocephalic, Atraumatic - Eye Eye Exam: No Scleral Icterus - Respiratory Respiratory Exam: Clear to Auscultation - Bilaterally, Breathing Non Labored - Cardiovascular Cardiovascular Exam: RRR, No Murmur, No Clicks, No Gallops, No Rubs, No JVD - GI/Abdominal GI/Abdominal Exam: Normal Bowel Sounds, Non Tender, Non Distended, Soft - Extremities Extremities Exam: No Clubbing Present, No Edema Present, No Cyanosis Present - Neurological Neurological Exam: Alert, Oriented x 3, No Facial Droop, Speech Intact / Clear, Moves All Extremities Equally Assessment and Plan - Patient Problems (1) Acute diverticulitis Current Visit: Yes Status: Acute Priority: High Diagnosis Date: 08/29/16 (2) Perforation of sigmoid colon Current Visit: Yes Status: Acute Priority: High Diagnosis Date: 08/29/16 (3) Benign prostatic hypertrophy Current Visit: Yes Status: Acute Qualifiers: Prostatic enlargement morphology: non-nodular Lower urinary tract symptom presence: symptoms present Qualified Description: Benign non- nodular prostatic hyperplasia with lower urinary tract symptoms Qualifier Code(s): (N40.1) Benign prostatic hyperplasia with lower urinary tract symptoms (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 Total of 14 days of antibiotics for this case of diverticulitis particularly this. May switch to by mouth medications tomorrow. I will get CT scan of abdomen and pelvis in a.m. to evaluate progress. Full liquid diet. IV fluids stopped at this time. Pain control with hydrocodone is effective for the patient. Eventual colonoscopy in 6-8 weeks.
[2016-09-01] MEDS: NORMAL SALINE 10 ML SYRINGE FLUSH IVP PRN (21:11)
[2016-09-01] MEDS: Ertapenem Inj 1 GM in Sodium Chloride 0.9% 100 ML IV SCH (21:11)
[2016-09-02] MEDS: HYDROcodone-APAP 5 MG -325 MG TABLET PO PRN ×6 (01:38→21:07)
--- NOTE | 2016-09-02 08:20 | DI ---
HISTORY: Diverticulitis with perforation. COMPARISON: None available. TECHNIQUE: Contrast enhanced images of the abdomen and pelvis were obtained and submitted for interp retation. FINDINGS: Limited sections of the lung bases demonstrate no focal pulmonary mass. Questionable trac e bibasilar effusions. There is a hypodensity in segment 4A of liver which is most likely a hepatic cyst. The spleen, gallb ladder, both kidneys, and both adrenal glands demonstrate no acute findings. There is an exophytic c yst in the interpolar region of the right kidney measuring approximately 5.0 cm. Both kidneys enhance symmetrically. There is no focal adrenal mass. The pancreas maintains a normal outline. There is significant inflammatory change, and thickening along the sigmoid colon, with a focal collec tion containing an air-fluid level measuring 4.2 x 2.0 cm reminiscent of an abscess (series 2 image 1 12). There is adjacent free fluid. There is no free intraperitoneal air. There is moderate constipation. The appendix is not clinical visualized. The small bowel loops are not dilated. The urinary bladder is not distended. The prostate gland is mildly enlarged. The visualized osseous structures demonstrate no destructive abnormality. The aorta and IVC demonstr ate no acute findings. IMPRESSION: 1. Questionable trace bibasilar effusions. 2. There is a hypodensity in segment 4A of liver which is most likely a hepatic cyst. 3. Evidence of an exophytic cyst in the interpolar region of the right kidney measuring approximately 5.0 cm. 4. There is significant inflammatory change, and thickening along the sigmoid colon, with a focal col lection containing an air-fluid level measuring 4.2 x 2.0 cm reminiscent of an abscess (series 2 imag e 112). There is adjacent free fluid. 5. Moderate constipation. NOTIFICATION: The above findings were phoned to Der[facility] in the ER Department on 09/02/2016 at 10:37 AM EST.
[2016-09-02] MEDS: TAMSULOSIN 0.4 MG CAPSULE PO SCH (09:54)
[2016-09-02] MEDS: Pantoprazole Inj 40 MG in Normal Saline Flush 10 ML IVP SCH (10:13)
--- NOTE | 2016-09-02 16:46 | PDOC(PROG) ---
Date and Time of Service: 09/02/2016, 1645 Interval History: No completes of chest pain, shortness breath or nausea or vomiting. Tolerating a full liquid diet. Still has some mild abdominal pressure in the lower quadrants. Repeat CT scan shows abscess 4.2 cm x 2.2 cm. Objective : Data - Labs CBC and BMP: 09/01/16 04:50 09/01/16 04:50 Labs - Last 24 Hours: Laboratory Results 08/29/16 08/29/16 08/30/16 Range/Units 21:00 21:34 04:38 WBC 11.31 H 11.02 H (4.8-10.8) 10^3/uL RBC 5.09 4.83 (4.70-6.10) 10^6/uL Hgb 15.0 13.8 L (14.0-18.0) g/dL Hct 44.1 42.2 (42.0-52.0) % MCV 86.6 87.4 (80-90) FL MCH 29.5 28.6 (27-31) PG MCHC 34.0 32.7 L (33-37) g/dL RDW Std Deviation 40.8 40.9 (39-50) fL RDW Coeff of [place] 13.1 13.1 (11.5-14.5) % Plt Count 226 193 (140-350) 10*3/uL MPV 9.4 9.8 (7.4-12.2) FL Immature Gran % (Auto) 0.3 0.1 (0-5) % Neut % (Auto) 84.0 H 80.6 H (50-80) % Lymph % (Auto) 7.5 L 9.9 L (10-50) % [place] % (Auto) 8.0 9.1 (5-15) % Eos % (Auto) 0 0.1 (0-8) % Baso % (Auto) 0.2 0.2 (0-1) % Immature Gran # (Auto) 0.03 0.01 10*3/UL Neut # (Auto) 9.51 8.89 10*3/UL Lymph # (Auto) 0.85 1.09 10*3/uL [place] # (Auto) 0.90 H 1.00 H (0.3-0.8) 10*3/UL Eos # (Auto) 0 0.01 10*3/UL Baso # (Auto) 0.02 0.02 10*3/UL WBC Morphology Comment Normal morphology Normal morphology (NORM) Plt Morphology Comment Normal morphology Normal morphology (NORM) RBC Morph Comment Normal morphology Normal morphology (NORM) Sodium 139 138 (135-145) meq/L Potassium 4.0 4.0 (3.8-5.2) meq/L Chloride 101 106 (98-112) meq/L Carbon Dioxide 28 24 (23-33) meq/L Anion Gap 10 8 (5-20) BUN 16 12 (7-22) mg/dL Creatinine 0.9 0.8 (0.70-1.50) mg/dL Estimated GFR > 60 > 60 (>60 ml/min/1.73m(2)) BUN/Creatinine Ratio 17.77 15.00 (6-20) Glucose 95 85 (78-110) mg/dL Calculated Osmolality 288.0 284.0 (267-292) mOsm/kg Lactic Acid 0.6 L 0.6 L (0.70-2.10) MMOL/L Calcium 8.9 8.2 L (8.7-10.7) mg/dL Total Bilirubin 2.1 H 1.6 H (0.3-1.2) mg/dL AST 16 L 11 L (21-57) IU/L ALT 30 27 (21-72) IU/L Alkaline Phosphatase 58 48 (38-126) IU/L Total Protein 7.0 5.9 L (6.1-8.0) g/dL Albumin 4.0 3.1 L (3.5-4.8) g/dL Globulin 3.0 2.8 (2.50-4.10) g/dL Albumin/Globulin Ratio 1.30 1.10 L (1.3-2.0) mg/g PSA Screen (0.006-4.00) ng/ml Ur Collection Type Void Urine Color [place] Urine Clarity Clear (CLEAR) Urine pH 5.5 (5.0-8.5) Ur Specific [place] 1.020 (1.005-1.030) Urine Protein 30 (NEG) mg/dl Urine Glucose (UA) Negative (NEG) mg/dL Urine Ketones 80 (NEG) Urine Occult Blood Trace-lysed H (NEG) Urine Nitrate Positive H (NEG) Urine Bilirubin Moderate (NEG) Urine Urobilinogen 4.0 (0.2) EU/dL Ur Leukocyte Esterase Negative (NEG) Urine RBC 0-1 (NONE) /hpf Urine WBC 3-5 (NONE) Ur Squamous Epith Cells None (NONE) Ur Renal Epithelial Cell None (NONE) Urine Crystals None Urine Bacteria Moderate (NONE) Urine Casts None (NONE) Urine Mucus Many (NONE) Urine Trichomonas None (NONE) Urine Yeast None (NONE) Ur Culture Indicated? Culture set 08/31/16 09/01/16 Range/Units 04:43 04:50 WBC 8.98 7.76 (4.8-10.8) 10^3/uL RBC 4.37 L 4.28 L (4.70-6.10) 10^6/uL Hgb 12.5 L 12.3 L (14.0-18.0) g/dL Hct 38.4 L 37.6 L (42.0-52.0) % MCV 87.9 87.9 (80-90) FL MCH 28.6 28.7 (27-31) PG MCHC 32.6 L 32.7 L (33-37) g/dL RDW Std Deviation 40.8 39.6 (39-50) fL RDW Coeff of [place] 12.8 12.6 (11.5-14.5) % Plt Count 199 215 (140-350) 10*3/uL MPV 9.8 9.9 (7.4-12.2) FL Immature Gran % (Auto) 0.1 0.1 (0-5) % Neut % (Auto) 82.6 H 79.0 (50-80) % Lymph % (Auto) 9.5 L 12.9 (10-50) % [place] % (Auto) 7.5 7.3 (5-15) % Eos % (Auto) 0.2 0.6 (0-8) % Baso % (Auto) 0.1 0.1 (0-1) % Immature Gran # (Auto) 0.01 0.01 10*3/UL Neut # (Auto) 7.42 6.12 10*3/UL Lymph # (Auto) 0.85 1.00 10*3/uL [place] # (Auto) 0.67 0.57 (0.3-0.8) 10*3/UL Eos # (Auto) 0.02 0.05 10*3/UL Baso # (Auto) 0.01 0.01 10*3/UL WBC Morphology Comment Normal morphology Normal morphology (NORM) Plt Morphology Comment Normal morphology Normal morphology (NORM) RBC Morph Comment Normal morphology Normal morphology (NORM) Sodium 135 138 (135-145) meq/L Potassium 3.5 L 3.6 L (3.8-5.2) meq/L Chloride 105 106 (98-112) meq/L Carbon Dioxide 24 25 (23-33) meq/L Anion Gap 6 7 (5-20) BUN 5 L 4 L (7-22) mg/dL Creatinine 0.7 0.8 (0.70-1.50) mg/dL Estimated GFR > 60 > 60 (>60 ml/min/1.73m(2)) BUN/Creatinine Ratio 7.14 5.00 L (6-20) Glucose 85 74 L (78-110) mg/dL Calculated Osmolality 275.0 281.0 (267-292) mOsm/kg Lactic Acid (0.70-2.10) MMOL/L Calcium 8.0 L 8.2 L (8.7-10.7) mg/dL Total Bilirubin (0.3-1.2) mg/dL AST (21-57) IU/L ALT (21-72) IU/L Alkaline Phosphatase (38-126) IU/L Total Protein (6.1-8.0) g/dL Albumin (3.5-4.8) g/dL Globulin (2.50-4.10) g/dL Albumin/Globulin Ratio (1.3-2.0) mg/g PSA Screen 0.394 (0.006-4.00) ng/ml Ur Collection Type Urine Color Urine Clarity (CLEAR) Urine pH (5.0-8.5) Ur Specific [place] (1.005-1.030) Urine Protein (NEG) mg/dl Urine Glucose (UA) (NEG) mg/dL Urine Ketones (NEG) Urine Occult Blood (NEG) Urine Nitrate (NEG) Urine Bilirubin (NEG) Urine Urobilinogen (0.2) EU/dL Ur Leukocyte Esterase (NEG) Urine RBC (NONE) /hpf Urine WBC (NONE) Ur Squamous Epith Cells (NONE) Ur Renal Epithelial Cell (NONE) Urine Crystals Urine Bacteria (NONE) Urine Casts (NONE) Urine Mucus (NONE) Urine Trichomonas (NONE) Urine Yeast (NONE) Ur Culture Indicated? Objective : Exam - General General Appearance: No Acute Distress, Cooperative Additional General Exam Details: Vital Signs - Last Taken Temperature 98.0 F 09/02/16 12:42 Pulse Rate 65 09/02/16 12:42 Respiratory Rate 16 09/02/16 12:42 Blood Pressure 141/67 09/02/16 12:42 Pulse Ox 92 09/02/16 12:42 - Eye Eye Exam: No Scleral Icterus - Respiratory Respiratory Exam: Clear to Auscultation - Bilaterally, Breathing Non Labored - Cardiovascular Cardiovascular Exam: RRR, No Murmur, No Clicks, No Gallops, No Rubs, No JVD - GI/Abdominal GI/Abdominal Exam: Normal Bowel Sounds, Non Distended, Soft Additional GI/Abdominal Exam Details: Tender in lower quadrants. - Extremities Extremities Exam: No Clubbing Present, No Edema Present, No Cyanosis Present - Neurological Neurological Exam: Alert, Oriented x 3, Normal Gait, No Facial Droop, Speech Intact / Clear, Moves All Extremities Equally Assessment and Plan - Patient Problems (1) Acute diverticulitis Current Visit: Yes Status: Acute Priority: High Diagnosis Date: 08/29/16 (2) Perforation of sigmoid colon Current Visit: Yes Status: Acute Priority: High Diagnosis Date: 08/29/16 (3) Benign prostatic hypertrophy Current Visit: Yes Status: Acute Qualifiers: Prostatic enlargement morphology: non-nodular Lower urinary tract symptom presence: symptoms present Qualified Description: Benign non- nodular prostatic hyperplasia with lower urinary tract symptoms Qualifier Code(s): (N40.1) Benign prostatic hyperplasia with lower urinary tract symptoms (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 Salinas, at this point, given that the patient is not febrile, has normal white count, and is otherwise stable , once he has a percutaneous drain it seems reasonable to continue by mouth antibiotics. We will do a total of 14 days of therapy, including another dose of Invanz tomorrow which will be 5 days of Invanz, then 9 days of oral antibiotic therapy. We were able to arrange with the [facility] in [place], [place], a percutaneous drain to be done tomorrow at 10 AM. After that drain, I will likely discharge the patient home in the afternoon as long as everything else remains stable. I'll check a PT and INR. Check CBC with differential in the morning. Discussed with the patient and his and they agreed.
[2016-09-02] MEDS: Ertapenem Inj 1 GM in Sodium Chloride 0.9% 100 ML IV SCH (21:07)
[2016-09-02] MEDS: NORMAL SALINE 10 ML SYRINGE FLUSH IVP PRN (21:07)
[2016-09-03] MEDS: HYDROcodone-APAP 5 MG -325 MG TABLET PO PRN (02:12)
[2016-09-03 04:31] VITALS: RESP 16
[2016-09-03 05:42] LABS: BASOPHILS # (AUTO) 0.02 10*3/UL; BASOPHILS % (AUTO) 0.3 % (0-1); EOSINOPHILS # (AUTO) 0.05 10*3/UL; EOSINOPHILS % (AUTO) 0.7 % (0-8); HEMATOCRIT 38.1 % (42.0-52.0); HEMOGLOBIN 12.3 g/dL (14.0-18.0); LYMPHOCYTES # (AUTO) 1.17 10*3/uL; MEAN CORPUSCULAR HEMOGLOBIN 27.9 PG (27-31); MEAN CORPUSCULAR HGB CONC 32.3 g/dL (33-37); MEAN CORPUSCULAR VOLUME 86.4 FL (80-90); MEAN PLATELET VOLUME 9.8 FL (7.4-12.2); MONOCYTES # (AUTO) 0.68 10*3/UL (0.3-0.8); MONOCYTES % (AUTO) 9.9 % (5-15); NEUTROPHILS # (AUTO) 4.96 10*3/UL; RED BLOOD COUNT 4.41 10^6/uL (4.70-6.10)
[2016-09-03 05:44] LABS: PLATELET MORPHOLOGY COMMENT NORMAL MORPHOLOGY (NORM); RBC MORPHOLOGY COMMENT NORMAL MORPHOLOGY (NORM); WBC MORPHOLOGY COMMENT NORMAL MORPHOLOGY (NORM)
[2016-09-03] MEDS: Pantoprazole Inj 40 MG in Normal Saline Flush 10 ML IVP SCH (08:15)
[2016-09-03] MEDS: TAMSULOSIN 0.4 MG CAPSULE PO SCH (08:15)
[2016-09-03 12:02] VITALS: TEMP 98.9
--- NOTE | 2016-09-03 13:37 | DCSUMMARY ---
Hospitalization Summary Admit Date: 08/30/16 Discharge Date: 09/03/16 Primary Diagnosis:: acute diverticulitis with abscess, resolved Hospital Course: This is a very pleasant 56-year-old male who came in with abdominal pain and was found to have a diverticulitis in the sigmoid colon along with what appeared to be a microperforation and abscess. Patient was placed in the hospital, had gut rest, and his diet was eventually advanced to a full liquid diet through the hospital stay. He has been tolerating that well with no return of symptoms. His pain is resolved remarkably in the hospital and is maybe 10-20% that was on admission. He had what appeared to be an abscess on CT scan and that was repeated on day 4 the hospital stay. Abscess seem to be persisting, 4 cm x 2.2 cm and we sent the patient to interventional radiology in [place] for percutaneous drain. However on their CT-guided percutaneous drain attempt, they found that the abscess and infection coalesced and is resolved. The thought from the radiologist and my discussion with him was that the patient probably had an intra-bowel collection of fluid and this is now gone. It was felt that to put a needle in might put the patient at risk for an enteric cutaneous fistula or worse. At this time, I think we can safely switch from IV antibiotics to by mouth antibiotics. He will get his last dose of Invanz today, 5 days total of Invanz therapy administered. He will finish a course of antibiotics with Levaquin and Flagyl. I have him on a 14 day course due to the microperforation. He will follow with surgery and may have a colonoscopy in the next 6-8 weeks. The patient reports that he has some intermittent decrease in stream of urine and difficulty initiating stream as well as some dribbling. Flomax is already starting to help him "ease up on those symptoms". We will continue that as an outpatient. His PSA screening is complete with a normal rectal exam and a PSA that was normal. I've recommended that he get a PSA in a year. I will also recommend consideration for yessenia spear. While on pain medications I have recommended Colace. I've also recommended an increased fiber diet with whole fruits and whole vegetables if possible. I strongly recommended patient try to quit chewing tobacco and gave him some options for considering that. Today, no completes of chest pain, shortness breath, nausea or vomiting. Abdominal pain is significantly improved. Assessment and Plan: 1. As per discharge assessments noted 2. Disposition: Patient is discharged home. 3. Condition on discharge, stable and improved. 4. Diet: Full liquid diet to regular diet with time. 5. Activities: resume normal activities 6. Follow-Up: 1. Dr. Song in a week 2. Dr. Gonzalez in a week 7. Medications at the Time of Discharge: Home Medications Medication Instructions Recorded Confirmed Type HYDROcodone/APAP 5/325 Tab [[place] 1 - 2 tab PO Q4H PRN #40 tab 09/02/16 Rx 5/325 Tab] Levofloxacin [Levaquin] 750 mg PO DAILY #9 tablet 09/02/16 Rx metroNIDAZOLE Tab [Flagyl Tab] 500 mg PO Q8H #27 tab 09/02/16 Rx Tamsulosin HCl [Flomax] 0.4 mg PO QPM #30 cap 09/03/16 Rx 8. Time, care, counseling and coordination of care for this discharge is greater than 30 minutes. Exam - Vitals Vital Signs: Vital Signs Temperature 98.9 F Temperature Source Oral Pulse Rate [Apical] 72 Pulse Rate [Pulse Oximeter] 64 Respiratory Rate 16 Blood Pressure [Right Arm] 146/75 Blood Pressure [Left Arm] 126/65 Pulse Ox 93 Oxygen Delivery Method Room Air Height 5 ft 9 in Weight 177 lb 6.4 oz - General General Appearance: POSITIVE: No Acute Distress, Cooperative - Eye Eye Exam: POSITIVE: No Scleral Icterus - ENT ENT Exam: POSITIVE: Mucous Membranes Moist - Respiratory Respiratory Exam: POSITIVE: Clear to Auscultation - Bilaterally, Breathing Non Labored - Cardiovascular Cardiovascular Exam: POSITIVE: RRR, No Murmur, No Clicks, No Gallops, No Rubs, No JVD - GI/Abdominal GI/Abdominal Exam: POSITIVE: Normal Bowel Sounds, Non Tender, Non Distended, Soft Additional GI/Abdominal Exam Details: Lower abdominal pain and suprapubic tenderness has resolved. - Extremities Extremities Exam: POSITIVE: No Clubbing Present, No Edema Present, No Cyanosis Present - Neurological Neurological Exam: POSITIVE: Alert, Oriented x 3, No Facial Droop, Speech Intact / Clear, Moves All Extremities Equally Data Perinent Studies: Laboratory Results 08/29/16 08/29/16 08/30/16 Range/Units 21:00 21:34 04:38 WBC 11.31 H 11.02 H (4.8-10.8) 10^3/uL RBC 5.09 4.83 (4.70-6.10) 10^6/uL Hgb 15.0 13.8 L (14.0-18.0) g/dL Hct 44.1 42.2 (42.0-52.0) % MCV 86.6 87.4 (80-90) FL MCH 29.5 28.6 (27-31) PG MCHC 34.0 32.7 L (33-37) g/dL RDW Std Deviation 40.8 40.9 (39-50) fL RDW Coeff of [place] 13.1 13.1 (11.5-14.5) % Plt Count 226 193 (140-350) 10*3/uL MPV 9.4 9.8 (7.4-12.2) FL Immature Gran % (Auto) 0.3 0.1 (0-5) % Neut % (Auto) 84.0 H 80.6 H (50-80) % Lymph % (Auto) 7.5 L 9.9 L (10-50) % [place] % (Auto) 8.0 9.1 (5-15) % Eos % (Auto) 0 0.1 (0-8) % Baso % (Auto) 0.2 0.2 (0-1) % Immature Gran # (Auto) 0.03 0.01 10*3/UL Neut # (Auto) 9.51 8.89 10*3/UL Lymph # (Auto) 0.85 1.09 10*3/uL [place] # (Auto) 0.90 H 1.00 H (0.3-0.8) 10*3/UL Eos # (Auto) 0 0.01 10*3/UL Baso # (Auto) 0.02 0.02 10*3/UL WBC Morphology Comment Normal morphology Normal morphology (NORM) Plt Morphology Comment Normal morphology Normal morphology (NORM) RBC Morph Comment Normal morphology Normal morphology (NORM) PT (9.7-11.4) secs INR (0.00-5.90) N/A Sodium 139 138 (135-145) meq/L Potassium 4.0 4.0 (3.8-5.2) meq/L Chloride 101 106 (98-112) meq/L Carbon Dioxide 28 24 (23-33) meq/L Anion Gap 10 8 (5-20) BUN 16 12 (7-22) mg/dL Creatinine 0.9 0.8 (0.70-1.50) mg/dL Estimated GFR > 60 > 60 (>60 ml/min/1.73m(2)) BUN/Creatinine Ratio 17.77 15.00 (6-20) Glucose 95 85 (78-110) mg/dL Calculated Osmolality 288.0 284.0 (267-292) mOsm/kg Lactic Acid 0.6 L 0.6 L (0.70-2.10) MMOL/L Calcium 8.9 8.2 L (8.7-10.7) mg/dL Total Bilirubin 2.1 H 1.6 H (0.3-1.2) mg/dL AST 16 L 11 L (21-57) IU/L ALT 30 27 (21-72) IU/L Alkaline Phosphatase 58 48 (38-126) IU/L Total Protein 7.0 5.9 L (6.1-8.0) g/dL Albumin 4.0 3.1 L (3.5-4.8) g/dL Globulin 3.0 2.8 (2.50-4.10) g/dL Albumin/Globulin Ratio 1.30 1.10 L (1.3-2.0) mg/g PSA Screen (0.006-4.00) ng/ml Ur Collection Type Void Urine Color [place] Urine Clarity Clear (CLEAR) Urine pH 5.5 (5.0-8.5) Ur Specific [place] 1.020 (1.005-1.030) Urine Protein 30 (NEG) mg/dl Urine Glucose (UA) Negative (NEG) mg/dL Urine Ketones 80 (NEG) Urine Occult Blood Trace-lysed H (NEG) Urine Nitrate Positive H (NEG) Urine Bilirubin Moderate (NEG) Urine Urobilinogen 4.0 (0.2) EU/dL Ur Leukocyte Esterase Negative (NEG) Urine RBC 0-1 (NONE) /hpf Urine WBC 3-5 (NONE) Ur Squamous Epith Cells None (NONE) Ur Renal Epithelial Cell None (NONE) Urine Crystals None Urine Bacteria Moderate (NONE) Urine Casts None (NONE) Urine Mucus Many (NONE) Urine Trichomonas None (NONE) Urine Yeast None (NONE) Ur Culture Indicated? Culture set 08/31/16 09/01/16 09/03/16 Range/Units 04:43 04:50 04:10 WBC 8.98 7.76 6.89 (4.8-10.8) 10^3/uL RBC 4.37 L 4.28 L 4.41 L (4.70-6.10) 10^6/uL Hgb 12.5 L 12.3 L 12.3 L (14.0-18.0) g/dL Hct 38.4 L 37.6 L 38.1 L (42.0-52.0) % MCV 87.9 87.9 86.4 (80-90) FL MCH 28.6 28.7 27.9 (27-31) PG MCHC 32.6 L 32.7 L 32.3 L (33-37) g/dL RDW Std Deviation 40.8 39.6 38.2 L (39-50) fL RDW Coeff of [place] 12.8 12.6 12.3 (11.5-14.5) % Plt Count 199 215 272 (140-350) 10*3/uL MPV 9.8 9.9 9.8 (7.4-12.2) FL Immature Gran % (Auto) 0.1 0.1 0.1 (0-5) % Neut % (Auto) 82.6 H 79.0 72.0 (50-80) % Lymph % (Auto) 9.5 L 12.9 17.0 (10-50) % [place] % (Auto) 7.5 7.3 9.9 (5-15) % Eos % (Auto) 0.2 0.6 0.7 (0-8) % Baso % (Auto) 0.1 0.1 0.3 (0-1) % Immature Gran # (Auto) 0.01 0.01 0.01 10*3/UL Neut # (Auto) 7.42 6.12 4.96 10*3/UL Lymph # (Auto) 0.85 1.00 1.17 10*3/uL [place] # (Auto) 0.67 0.57 0.68 (0.3-0.8) 10*3/UL Eos # (Auto) 0.02 0.05 0.05 10*3/UL Baso # (Auto) 0.01 0.01 0.02 10*3/UL WBC Morphology Comment Normal morphology Normal morphology Normal morphology (NORM) Plt Morphology Comment Normal morphology Normal morphology Normal morphology (NORM) RBC Morph Comment Normal morphology Normal morphology Normal morphology ( NORM) PT 10.7 (9.7-11.4) secs INR 1.04 (0.00-5.90) N/A Sodium 135 138 (135-145) meq/L Potassium 3.5 L 3.6 L (3.8-5.2) meq/L Chloride 105 106 (98-112) meq/L Carbon Dioxide 24 25 (23-33) meq/L Anion Gap 6 7 (5-20) BUN 5 L 4 L (7-22) mg/dL Creatinine 0.7 0.8 (0.70-1.50) mg/dL Estimated GFR > 60 > 60 (>60 ml/min/1.73m(2)) BUN/Creatinine Ratio 7.14 5.00 L (6-20) Glucose 85 74 L (78-110) mg/dL Calculated Osmolality 275.0 281.0 (267-292) mOsm/kg Lactic Acid (0.70-2.10) MMOL/L Calcium 8.0 L 8.2 L (8.7-10.7) mg/dL Total Bilirubin (0.3-1.2) mg/dL AST (21-57) IU/L ALT (21-72) IU/L Alkaline Phosphatase (38-126) IU/L Total Protein (6.1-8.0) g/dL Albumin (3.5-4.8) g/dL Globulin (2.50-4.10) g/dL Albumin/Globulin Ratio (1.3-2.0) mg/g PSA Screen 0.394 (0.006-4.00) ng/ml Ur Collection Type Urine Color Urine Clarity (CLEAR) Urine pH (5.0-8.5) Ur Specific [place] (1.005-1.030) Urine Protein (NEG) mg/dl Urine Glucose (UA) (NEG) mg/dL Urine Ketones (NEG) Urine Occult Blood (NEG) Urine Nitrate (NEG) Urine Bilirubin (NEG) Urine Urobilinogen (0.2) EU/dL Ur Leukocyte Esterase (NEG) Urine RBC (NONE) /hpf Urine WBC (NONE) Ur Squamous Epith Cells (NONE) Ur Renal Epithelial Cell (NONE) Urine Crystals Urine Bacteria (NONE) Urine Casts (NONE) Urine Mucus (NONE) Urine Trichomonas (NONE) Urine Yeast (NONE) Ur Culture Indicated? Patient Problems - Patient Problem List (1) Acute diverticulitis Current Visit: Yes Status: Acute Diagnosis Date: 08/29/16 Priority: High (2) Perforation of sigmoid colon Current Visit: Yes Status: Acute Diagnosis Date: 08/29/16 Priority: High (3) Benign prostatic hypertrophy Current Visit: Yes Status: Acute Qualifiers: Prostatic enlargement morphology: non-nodular Lower urinary tract symptom presence: symptoms present Qualified Description: Benign non- nodular prostatic hyperplasia with lower urinary tract symptoms Qualifier Code(s): (N40.1) Benign prostatic hyperplasia with lower urinary tract symptoms (4) History of Shepard's palsy Current Visit: Yes Status: Acute
[2016-09-03] MEDS: Ertapenem Inj 1 GM in Sodium Chloride 0.9% 100 ML IV SCH (15:01)
== END 2016-09-03 15:43 | disposition short-term general hospital (02) | DRG 391 ==
LOC: ER 20:30 → MED/SURG 23:51
PROVIDERS: ADMIT Family Medicine; ATTEND Family Medicine
DX: K57.92 Diverticulitis of intestine, part unspecified, without perforation or abscess without bleeding (principal); K63.1 Perforation of intestine (nontraumatic); K63.0 Abscess of intestine; N40.0 Benign prostatic hyperplasia without lower urinary tract symptoms
CPT/HCPCS: 36415; 74022; 74177; 80048; 80053; 81001; 81003; 83605; 84403; 85025; 85610; 87040; 87088; 94761; 96361; 96365; 96375; 99284; G0103; J1170; J1335; J2270; J2405; J3490; J7030; J7050

== ENCOUNTER → 2016-09-24 | Outpatient (CLI) | payer BC ==
[2016-09-24 09:10] LABS: BASOPHILS # (AUTO) 0.04 10*3/UL; BASOPHILS % (AUTO) 0.7 % (0-1); EOSINOPHILS # (AUTO) 0.08 10*3/UL; EOSINOPHILS % (AUTO) 1.5 % (0-8); HEMATOCRIT 45.7 % (42.0-52.0); HEMOGLOBIN 14.8 g/dL (14.0-18.0); LYMPHOCYTES # (AUTO) 1.26 10*3/uL; MEAN CORPUSCULAR HEMOGLOBIN 28.5 PG (27-31); MEAN CORPUSCULAR HGB CONC 32.4 g/dL (33-37); MEAN CORPUSCULAR VOLUME 88.1 FL (80-90); MEAN PLATELET VOLUME 9.3 FL (7.4-12.2); MONOCYTES # (AUTO) 0.38 10*3/UL (0.3-0.8); MONOCYTES % (AUTO) 6.9 % (5-15); NEUTROPHILS # (AUTO) 3.73 10*3/UL; NEUTROPHILS % (AUTO) 67.9 % (50-80); RED BLOOD COUNT 5.19 10^6/uL (4.70-6.10)
[2016-09-24 09:37] LABS: HEMOGLOBIN A1C 5.18 % (4.2-6.0)
[2016-09-24 10:01] LABS: BLOOD UREA NITROGEN 13 mg/dL (7-22); BUN/CREATININE RATIO 14.44 (6-20); CALCIUM 8.7 mg/dL (8.7-10.7); CHOL/HDL RATIO 2.06 RATIO (0-4.0); EST GLOMERULAR FILTRATION > 60 (>60 ml/min/1.73m(2)); HDL CHOLESTEROL 50 mg/dL (40-150); SERUM ALBUMIN 3.6 g/dL (3.5-4.8); SERUM CHOLESTEROL 103 mg/dL (120-200)
[2016-09-24 10:17] LABS: FREE T4 (FREE THYROXINE) 0.87 ng/dL (0.93-1.71)
[2016-09-24 10:19] LABS: PLATELET MORPHOLOGY COMMENT NORMAL MORPHOLOGY (NORM); RBC MORPHOLOGY COMMENT NORMAL MORPHOLOGY (NORM); WBC MORPHOLOGY COMMENT NORMAL MORPHOLOGY (NORM)
== END ==
LOC: LAB 08:52
PROVIDERS: ATTEND Family Medicine
DX: K57.32 Diverticulitis of large intestine without perforation or abscess without bleeding (principal); E29.1 Testicular hypofunction; R53.83 Other fatigue; E55.9 Vitamin D deficiency, unspecified; R63.4 Abnormal weight loss; Z13.1 Encounter for screening for diabetes mellitus; Z83.49 Family history of other endocrine, nutritional and metabolic diseases; Z83.3 Family history of diabetes mellitus; F17.200 Nicotine dependence, unspecified, uncomplicated
CPT/HCPCS: 36415; 80053; 80061; 82306; 82607; 83036; 84439; 84442; 84443; 85025; 86376

== ENCOUNTER → 2016-10-08 | Outpatient (CLI) | payer BC ==
--- NOTE | 2016-10-08 09:50 | DI ---
THYROID ULTRASOUND, 10/08/2016 9:00 AM Clinical History: Thyroiditis. Previous Exam: None. Scans are performed through both lobes of the thyroid gland in multiple projections with the high res olution linear array probe. Color Doppler ultrasound is also performed. Both lobes of the thyroid gland are increased in size, particularly in the AP dimension. The right an d left lobes measure 29 x 20 x 45 mm, and 26 x 15 x 45 mm, in the AP, transverse, and longitudinal di mensions, respectively. There is mild to moderate increased vascularity in both lobes of the thyroid gland, and there is a heterogeneous pattern with multiple hypoechoic micronodular lesions. 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 No discrete mass is present. Reading: Mild thyromegaly with a micronodular pattern consistent with Alejandro's thyroiditis. Mild to moderat e hypervascularity is present in both lobes.
== END ==
LOC: US 08:57
PROVIDERS: ATTEND Family Medicine
DX: E06.3 Autoimmune thyroiditis (principal)
CPT/HCPCS: 76536

== ENCOUNTER → 2016-10-15 | Outpatient (CLI) | payer BC ==
--- NOTE | 2016-10-15 15:32 | DI ---
CT ABDOMEN SCAN WITH IV CONTRAST, 10/15/2016 12:54 PM : Clinical History: Diverticulitis of the colon with abscess and without bleeding. Previous Exam: 09/02/2016. Scans are performed from the lower lung bases through the liver and kidneys with IV contrast. 95 ml o f Isovue 300 was injected IV. Low density oral barium contrast (Volumen - low density CT enterography oral contrast) was administered for all phases of the exam. The patient could not tolerate rectal co ntrast. The lung bases are clear. There is a fluid density 12 mm lesion in the right lobe of the liver near t he dome, consistent with a simple cyst. This has not changed from the previous exam. The gallbladder is grossly normal. There is no abnormality of the spleen, pancreas, and adrenal glands. Both kidneys are normal in size, shape, position and contour. There is no hydronephrosis or hydroureter. No renal or ureteral calculi are present. There are no abnormal retrocrural or periaortic nodes. No ascites is present. READING: Normal CT abdomen scan. There is a small incidental 12 mm cyst of the right lobe of the liver. CT PELVIS SCAN WITH IV CONTRAST, 10/15/2016 12:54 PM: Clinical History: See above. Previous Exam: 09/02/2016. Scans are performed from just superior to the umbilicus to the symphysis pubis with IV contrast. This is the same bolus of contrast used for the CT scans of the abdomen. Scans through the lower abdomen and pelvis show no masses or abnormal fluid collections. There is no adenopathy. The appendix is not visualized with certainty but there is no inflammatory mass either in the cecal tip or in the right lower quadrant. The small bowel, terminal ileum, and ileocecal valve a re normal. In the area of the sigmoid colon just superior to the bladder, the previous study revealed a focus of diverticulitis with an extraluminal fluid collection with gas consistent with a small abs cess. On the current exam, there is no evidence of an abscess pocket and there is no periserosal infl ammatory/infiltrative change. The remainder of the colon is unremarkable. There are no hernias. READIN. The abscess associated with diverticulitis of the sigmoid colon present on the scans from 09/03/19 17, has resolved as has the focus of diverticulitis. The colon is normal. 2. The remainder of the examination is unremarkable.
== END ==
LOC: CT 12:47
PROVIDERS: ATTEND Surgery
DX: K57.20 Diverticulitis of large intestine with perforation and abscess without bleeding (principal)
CPT/HCPCS: 74177

== ENCOUNTER 2016-10-22 08:24 | Day surgery (SDC) | payer BC ==
[2016-10-22] MEDS ORDERED: Lactated Ringers 1,000 ML PRIMARY IV ONE ×2 (08:51→11:36)
[2016-10-22 08:52] VITALS: RESP 14
[2016-10-22] MEDS: LIDOCAINE W/ SODIUM BICARB 0.5 ML SYR ONE (08:54)
--- NOTE | 2016-10-22 11:48 | GEN.OPNOTE ---
Colonoscopy Procedure Note Surgery Date: 10/22/16 Preoperative Diagnosis: History of diverticulitis with pericolonic abscess. Postoperative Diagnosis: History of diverticulitis with paracolonic abscess. Diverticulosis. Small polyp at 30 cm from the anal verge. Procedure: Complete colonoscopy with hot snare polypectomy of small polyp 30 cm from the anal verge. Surgeon: Willy Gonzalez MD Anesthesia Provider: Toshia Krause CRNA Anesthesia Type: MAC Indications: See preoperative diagnosis. Findings: Prep : [Good] Cecum : [Normal] Ascending : [Normal] Transverse : [Normal] Sigmoid : [Diverticulosis. Small polyp at 30 cm. Hot snare polypectomy performed.] Rectum : [Normal] Digital Rectal Exam : [No significant perianal pathology. Prostate of normal size and consistency.] A lubricated flexible colonoscope was inserted and passed to the blind end of the cecum. The karuk's foot, appendiceal orifice, and ileocecal valve were clearly seen. Air was aspirated as the scope was withdrawn. The cecum, ascending colon, hepatic flexure, transverse colon, splenic flexure, and descending colon were unremarkable. Sigmoid colon showed evidence of diverticulosis. There is a small polyp at 30 cm from the anal verge which was removed with a hot snare. Hemostasis was assured. The remainder of the sigmoid colon and rectum were unremarkable. The scope was withdrawn completing the procedure. The patient tolerated all aspects of the procedure well without complication. He was taken to outpatient surgery in stable condition. Follow-up will be with my office in 1-2 weeks to discuss options.
[2016-10-22 13:08] VITALS: TEMP 97.2
== END 2016-10-22 12:05 | disposition home or self-care (01) ==
LOC: SDSC 08:24
PROVIDERS: ATTEND Surgery
DX: K57.32 Diverticulitis of large intestine without perforation or abscess without bleeding (principal); K57.90 Diverticulosis of intestine, part unspecified, without perforation or abscess without bleeding; K63.5 Polyp of colon
CPT/HCPCS: 45385; J2704; J7120

== ENCOUNTER 2016-12-24 09:57 | Inpatient (IN) ==
[~2016-12-24 09:57] MED LIST: ERTAPENEM 1 GM VIAL ONE; LIDOCAINE W/ SODIUM BICARB 0.5 ML SYR ONE; Lactated Ringers 1,000 ML PRIMARY IV ONE; Sodium Chloride 0.9% 100 ML IV ONE
[2016-12-24] MEDS ORDERED: LIDOCAINE W/ SODIUM BICARB 0.5 ML SYR SUBD ONE (10:30)
[2016-12-24] MEDS ORDERED: Lactated Ringers 1,000 ML PRIMARY IV SCH (10:30)
[2016-12-24] MEDS ORDERED: Propofol 200 MG/20 ML VIAL IV ONE (10:47)
[2016-12-24] MEDS ORDERED: fentaNYL Inj 100 MCG/2 ML VIAL ONE (10:48)
[2016-12-24] MEDS ORDERED: MIDAZOLAM 5 MG/1 ML ONE (10:48)
[2016-12-24] MEDS ORDERED: LIDOCAINE MPF 2% - 5 ML (20 MG/1 ML) ONE (10:48)
[2016-12-24] MEDS ORDERED: ROCURONIUM 10 MG/1 ML - 5 ML VIAL IVP ONE ×2 (10:49→12:27)
[2016-12-24] MEDS ORDERED: CITRIC ACID/SODIUM CITRATE 30 ML CUP PO ONE ×2 (10:51→10:59)
[2016-12-24] MEDS ORDERED: Metoclopramide Inj 10 MG/2 ML VIAL ONE ×2 (10:51→10:55)
[2016-12-24] MEDS ORDERED: PANTOPRAZOLE IV 40 MG VIAL ONE (10:52)
[2016-12-24] MEDS ORDERED: Pantoprazole Inj 40 MG in Normal Saline Flush 10 ML IVP ONE (10:59)
[2016-12-24] MEDS ORDERED: Metoclopramide Inj 10 MG/2 ML VIAL IVP ONE (10:59)
[2016-12-24] MEDS ORDERED: Ertapenem Inj 1 GM in Sodium Chloride 0.9% 100 ML IV ONE (12:00)
[2016-12-24] MEDS ORDERED: KETAMINE 100 MG/1 ML - 5 ML ONE (12:18)
[2016-12-24] MEDS ORDERED: SUFENTANIL 50 MCG/1 ML ONE (12:30)
[2016-12-24] MEDS ORDERED: METHYLENE BLUE 10 MG/1 ML - 10 ML ONE (12:38)
[2016-12-24] MEDS ORDERED: Indigotindisulfonate Inj 40mg/5ml amp ONE (12:39)
[2016-12-24] MEDS ORDERED: Lactated Ringers 2,000 ML PRIMARY IV ONE (13:09)
[2016-12-24] MEDS ORDERED: SUGAMMADEX SODIUM 200 MG/2 ML VIAL IV ONE (13:44)
[2016-12-24] MEDS ORDERED: KETOROLAC 30 MG/1 ML VIAL ONE (13:46)
[2016-12-24] MEDS ORDERED: BUPivacaine Liposome/PF (Exparel) Inj 20ml vial INFIL ONE (13:57)
[2016-12-24] MEDS ORDERED: Sodium Chloride 0.9% vial 20 ML ONE (13:57)
[2016-12-24] MEDS ORDERED: Sodium Chloride 0.9% vial 10 ML ONE (13:58)
[2016-12-24] MEDS ORDERED: Nalbuphine Inj 20 MG/ML Ampule ONE (14:16)
--- NOTE | 2016-12-24 14:29 | GEN.OPNOTE ---
Operative Note Surgery Date: 12/24/16 Preoperative Diagnosis: History of perforated diverticulitis with pelvic abscess. Postoperative Diagnosis: Same. Procedure: Sigmoid colectomy with low pelvic anastomosis. Surgeon: Willy Gonzalez MD Marriage Therapist: Ender Salinas MD Anesthesia Provider: Guille Snow CRNA Anesthesia Type: General Estimated Blood Loss (mL): 100 Fluids: 3000 mL of crystalloid. 1 g IV Invanz at the start of the procedure. 30 mg of IV Toradol at the end of the procedure. Pathology: Specimen to pathology included the resected sigmoid colon and both ends of the anastomosis. Indications: Patient had acute diverticulitis. He had a pelvic abscess. He got better with antibiotics. He had a follow-up colonoscopy and CT scan which showed resolution. With the severity of his diverticulitis he was recommended to undergo sigmoid colectomy and presents for the same. Findings: Thickened sigmoid colon. Multiple diverticuli. There was an adhesion from the sigmoid colon to the posterior wall of the bladder with a small resolved abscess cavity, no pus. There is adherent small bowel to the resolved bladder abscess cavity, no pus. No other intra-abdominal pathology. Complications: None. Operative Summary: The patient was taken to the operating suite and placed on the operating table in the supine position. Following induction of general anesthetic the abdomen was prepped and draped in a sterile fashion. Patient was put in low universal stirrups. A Verde catheter was inserted. A surgical timeout was done. A lower midline incision was made and carried down through the subcutaneous tissue with electrocautery. The midline fascia was transected with electrocautery. The peritoneum was elevated and incised. An Silvio retractor was placed. The patient was placed in Trendelenburg. The entire abdominal cavity was palpated. There was no other pathology other than a thickened sigmoid colon. There was a knuckle of small bowel adherent to the posterior wall of the bladder. This was taken down both bluntly and sharply. This was the old abscess cavity. There was no pus. After the small bowel was freed up there is some inflammation on the serosa but there were no muscle wall defects. The sigmoid colon was also adherent. This was taken down sharply and bluntly. The patient was given some IV methylene blue. The urine turned blue from the dye but there was never any leakage from the posterior wall of the bladder. Several filmy adhesions were taken down. The small bowel was packed into the upper abdomen with wet lap sponges. Attention was turned to the sigmoid colon. This was mobilized by taking down the gutter laterally. The dissection stayed right on the bowel as this was for benign disease process. The proximal transection site was chosen. It was cleared of the paracolonic adipose tissue and mesentery. A pursestring suture was placed across the bowel closed and fired. A Bobbi clamp was placed on the distal bowel. The bowel was divided sharply. The mesentery of the sigmoid colon was taken down by serially clamping dividing and ligating the vessels with 0 Vicryl sutures. Again I stayed right along the bowel as this was a benign disease process. This dissection was carried down to the peritoneal reflection. There was no further diverticular disease in this area. The distal transection site was chosen. It was cleaned of the paracolonic vessels and adipose tissue. A TA 60 stapling device with a green load was placed across the distal sigmoid/proximal rectum closed, and fired. A Bobbi was placed on the bowel proximally. The bowel was divided. The bowel was removed from the operative field. There was adequate length of the proximal bowel to reach the rectal stump without tension. The pursestring clamp was opened. The proximal bowel was sized to a size 29 stapler. The anvil from the endoluminal stapler was placed into the proximal bowel. The pursestring suture was tied. Hemostasis was assured. Appropriate irrigation was done. Dr. Salinas then went down below. Dilators were placed into the rectal stump followed by the stapling device. The trocar was advanced through the rectal stump staple line and the device was placed together, closed and fired creating an endoluminal stapled anastomosis. The device was opened and removed. There were 2 complete rings of tissue both proximally and distally. A bowel clamp was placed across the sigmoid colon. Dr. Salinas placed the colonoscope into the anus and advanced it to the anastomosis. The anastomosis was distended with air. There was no bubbling or leakage from the anastomotic site. The anastomosis was intact. The air was aspirated and the scope was withdrawn. All personnel changed gowns and gloves. Extensive irrigation was undertaken. Hemostasis was assured. The intestinal contents were returned to a relative anatomic position and covered with omentum. The midline fascia was closed with running #1 Vicryl. A suture was started at each end and tied independently in the middle. The subcutaneous tissue was irrigated. The subcutaneous tissue was infiltrated with a total of 20mL of Exparel which had been diluted to 40 mL.. The skin was closed with surgical chantal followed by an appropriate dressing. The patient tolerated the entire procedure well without complication. He was taken to recovery room in stable condition. All counts were correct.
[2016-12-24] MEDS ORDERED: fentaNYL Inj 100 MCG/2 ML VIAL IVP PRN (14:32)
[2016-12-24] MEDS ORDERED: ONDANSETRON 4 MG/2 ML VIAL IVP PRN ×2 (14:32→15:39)
[2016-12-24] MEDS ORDERED: NORMAL SALINE 10 ML SYRINGE FLUSH IVP PRN (14:32)
[2016-12-24] MEDS ORDERED: HYDROmorphone 2 MG/1 ML IVP PRN (14:32)
--- NOTE | 2016-12-24 14:34 | CRNA.PROGR ---
Anesthesia Time - - Start date: 12/24/16 End date: 12/24/16 - Procedure/Recovery Time Anesthesia : Time In: 11:48 Anesthesia : Time Out: 14:33 Anesthesia : Total Time: 165 - Total Anesthesia Time Total Anesthesia Time (minutes): 165 - Other Weight: 74.389 kg Height: 5 ft 9 in Body Mass Index (BMI): 24.2
[2016-12-24] MEDS: HYDROmorphone 2 MG/1 ML IVP PRN ×4 (16:15→18:41)
[2016-12-24] MEDS: D5-LR + 20mEq KCL 1,000 ML PRIMARY IV SCH (16:24)
[2016-12-24] MEDS: NORMAL SALINE 10 ML SYRINGE FLUSH IVP PRN (18:43)
[2016-12-24] MEDS: KETOROLAC 15 MG/1 ML VIAL IVP SCH (20:06)
[2016-12-25] MEDS: D5-LR + 20mEq KCL 1,000 ML PRIMARY IV SCH ×4 (00:17→23:01)
[2016-12-25] MEDS: HYDROmorphone 2 MG/1 ML IVP PRN ×9 (00:21→22:10)
[2016-12-25] MEDS: KETOROLAC 15 MG/1 ML VIAL IVP SCH ×4 (01:59→19:46)
[2016-12-25 04:17] LABS: BASOPHILS # (AUTO) 0.01 10*3/UL; BASOPHILS % (AUTO) 0.1 % (0-1); EOSINOPHILS # (AUTO) 0 10*3/UL; EOSINOPHILS % (AUTO) 0 % (0-8); Hematocrit [HCT] 38.3 % (42.0-52.0); Hemoglobin [HGB] 12.6 g/dL (14.0-18.0); LYMPHOCYTES # (AUTO) 0.79 10*3/uL; MEAN CORPUSCULAR HGB CONC 32.9 g/dL (33-37); MEAN PLATELET VOLUME 9.6 FL (7.4-12.2); MONOCYTES # (AUTO) 0.71 10*3/UL (0.3-0.8); MONOCYTES % (AUTO) 8.7 % (5-15); NEUTROPHILS # (AUTO) 6.65 10*3/UL; NEUTROPHILS % (AUTO) 81.4 % (50-80); RED BLOOD COUNT 4.35 10^6/uL (4.70-6.10)
[2016-12-25 04:24] LABS: PLATELET MORPHOLOGY COMMENT NORMAL MORPHOLOGY (NORM); RBC MORPHOLOGY COMMENT NORMAL MORPHOLOGY (NORM); WBC MORPHOLOGY COMMENT NORMAL MORPHOLOGY (NORM)
[2016-12-25 04:28] LABS: BLOOD UREA NITROGEN 10 mg/dL (7-22); BUN/CREATININE RATIO 14.28 (6-20)
[2016-12-25] MEDS: Pantoprazole Inj 40 MG in Normal Saline Flush 10 ML IVP SCH (09:01)
--- NOTE | 2016-12-25 09:06 | PDOC(PROG) ---
Subjective Post Op Day: 1 Pain Management: IV Verde Catheter: Yes Flatus: No Diet: NPO Ambulating: Yes Date and Time of Service: 12/25/2016 9 AM Interval History: Overall doing well. No specific complaints or problems. He reports he is sore. Mostly under the incision but some in the right abdomen. He feels some gurgling in his abdomen. He has had a little bit of a queasy stomach. No vomiting. He got up out of bed last night. He is getting ready to ambulate this morning. He is working on his incentive spirometer. We discussed the surgery in the operative findings in detail. The was present. Objective : Data - Labs CBC and BMP: 12/25/16 04:10 12/25/16 04:10 - Vital Signs Vital Signs and I&O: Vital Signs - Last Taken Temperature 97.7 F 12/25/16 06:57 Pulse Rate 50 L 12/25/16 07:00 Respiratory Rate 17 12/25/16 06:57 Blood Pressure 122/64 12/25/16 06:57 Pulse Ox 99 12/25/16 06:57 Intake and Output (24hr x 4 totals) 12/23/16 12/24/16 12/25/16 12/26/16 05:59 05:59 05:59 05:59 Intake Total 5663 / 5663 Output Total 700 / 700 Balance 4963 / 4963 Objective : Exam - General General Appearance: No Acute Distress, Cooperative - Respiratory Respiratory Exam: Clear to Auscultation - Bilaterally, Breathing Non Labored - Cardiovascular Cardiovascular Exam: No Murmur, Bradycardia (Asymptomatic bradycardia. c web developer in place.) - GI/Abdominal GI/Abdominal Exam: Non Distended, Soft, Hypoactive Bowel Sounds Additional GI/Abdominal Exam Details: The dressing is clean, dry and intact. The abdomen is soft. There is incisional tenderness as expected. - Neurological Neurological Exam: Alert, Oriented x 3 - Psychiatric Psychiatric Exam: Normal Affect, Normal Mood Assessment and Plan - Patient Problems (1) Status post partial colectomy Current Visit: Yes Status: Acute Priority: High Onset Date: 12/24/16 Comment: Doing very well postoperatively. No issues at this time. Continue postoperative care. Will start a few ice chips. Continue to monitor for return of GI function. Recommend frequent ambulation. Continue work with the incentive spirometer. Plan DC Verde catheter in the a.m. Check a.m. labs. Code(s): Z90.49 - Acquired absence of other specified parts of digestive tract
--- NOTE | 2016-12-25 09:27 | CRNA.PROGR ---
Anesthesia Note - Progress Notes Anesthesia Progress Note: Post OP Anesthesia Note Pt is sitting up in bed, he has been up to ambulate twice, he states that his pain is well under control. The simms catheter is still in place. He continues to be NPO for now. C/O one episode of nausea last night after ambulating but with no vomiting. Current VS are stable. Vital Signs - Last Taken Temperature 97.7 F 12/25/16 06:57 Pulse Rate 50 L 12/25/16 07:00 Respiratory Rate 12/25/16 06:57 Blood Pressure 122/64 12/25/16 06:57 Pulse Ox 99 12/25/16 06:57
[2016-12-25] MEDS ORDERED: Ertapenem Inj 1 GM in Sodium Chloride 0.9% 100 ML IV SCH (12:00)
[2016-12-25 20:20] LABS: Hematocrit [HCT] 31.6 % (42.0-52.0); Hemoglobin [HGB] 10.3 g/dL (14.0-18.0)
[2016-12-25 22:03] LABS: Hematocrit [HCT] 32.2 % (42.0-52.0); Hemoglobin [HGB] 10.6 g/dL (14.0-18.0)
[2016-12-26] MEDS: HYDROmorphone 2 MG/1 ML IVP PRN ×13 (00:40→23:00)
[2016-12-26 04:44] LABS: BASOPHILS # (AUTO) 0.01 10*3/UL; BASOPHILS % (AUTO) 0.2 % (0-1); EOSINOPHILS # (AUTO) 0.04 10*3/UL; EOSINOPHILS % (AUTO) 0.7 % (0-8); Hematocrit [HCT] 28.4 % (42.0-52.0); Hemoglobin [HGB] 9.1 g/dL (14.0-18.0); MEAN CORPUSCULAR HEMOGLOBIN 28.9 PG (27-31); MEAN CORPUSCULAR VOLUME 90.2 FL (80-90); MEAN PLATELET VOLUME 10.2 FL (7.4-12.2); MONOCYTES # (AUTO) 0.61 10*3/UL (0.3-0.8); MONOCYTES % (AUTO) 10.7 % (5-15); NEUTROPHILS # (AUTO) 3.84 10*3/UL; NEUTROPHILS % (AUTO) 67.2 % (50-80); RED BLOOD COUNT 3.15 10^6/uL (4.70-6.10)
[2016-12-26 04:49] LABS: PLATELET MORPHOLOGY COMMENT NORMAL MORPHOLOGY (NORM); RBC MORPHOLOGY COMMENT NORMAL MORPHOLOGY (NORM); WBC MORPHOLOGY COMMENT NORMAL MORPHOLOGY (NORM)
[2016-12-26 05:24] LABS: BLOOD UREA NITROGEN 8 mg/dL (7-22); BUN/CREATININE RATIO 11.42 (6-20)
[2016-12-26] MEDS: D5-LR + 20mEq KCL 1,000 ML PRIMARY IV SCH ×4 (06:58→15:30)
[2016-12-26] MEDS: Pantoprazole Inj 40 MG in Normal Saline Flush 10 ML IVP SCH (08:00)
[2016-12-26] MEDS: NORMAL SALINE 10 ML SYRINGE FLUSH IVP PRN (09:54)
[2016-12-26 11:23] LABS: Hematocrit [HCT] 28.1 % (42.0-52.0); Hemoglobin [HGB] 9.1 g/dL (14.0-18.0)
--- NOTE | 2016-12-26 13:05 | PDOC(PROG) ---
Subjective Post Op Day: 2 Pain Management: IV Verde Catheter: Yes Flatus: Yes Diet: ice chips Ambulating: Yes Date and Time of Service: 12/26/2016 patient was seen at 11:45 AM Interval History: Overall okay. Feeling a little lightheaded when upright. Patient had a bloody bowel movement late yesterday afternoon and several more through the night. He had a 300 mL dark black bloody bowel movement this morning. His hemoglobin and hematocrit at 4 AM 12/25/2016 were 12.6 and 38. Last evening at 8 PM his hemoglobin was 10.3 and his hematocrit was 31.6. This morning at 4:40 AM his hemoglobin was 9.1 his hematocrit was 28.4 and at 11:22 AM his hemoglobin was 9.1 his hematocrit was 28.1. Again he is not passing bright red blood per rectum. The stool was dark and black. Otherwise he reports his pain control is better. He is ambulating. The Verde catheter is still in place for now. I discussed the bleeding with the patient and his . This must be an anastomotic bleed. It looks like it has slowed or stopped. The Toradol was stopped. I told the patient that if his hemoglobin and hematocrit dropped further or if he is more symptomatic he will need a blood transfusion. If he continues to pass old blood we will need to give some consideration to endoscopy to see if we can see where the bleeding is coming from and cauterize it. They also understand if we can't control it he made need surgical intervention. Hopefully that will be unlikely. Objective : Data - Labs CBC and BMP: 12/26/16 11:22 12/26/16 04:39 - Vital Signs Vital Signs and I&O: Vital Signs - Last Taken Temperature 97.5 F 12/26/16 12:50 Pulse Rate 63 12/26/16 12:50 Respiratory Rate 16 12/26/16 12:50 Blood Pressure 103/61 12/26/16 12:50 Pulse Ox 93 12/26/16 12:50 Intake and Output (24hr x 4 totals) 12/24/16 12/25/16 12/26/16 12/27/16 05:59 05:59 05:59 05:59 Intake Total 5663 / 5663 2969 / 2969 60 / 60 Output Total 700 / 700 925 / 925 750 / 750 Balance 4963 / 4963 2044 / 2044 -690 / -690 Objective : Exam - General General Appearance: No Acute Distress, Cooperative Additional General Exam Details: pale. - Respiratory Respiratory Exam: Clear to Auscultation - Bilaterally, Breathing Non Labored - Cardiovascular Cardiovascular Exam: RRR, No Murmur - GI/Abdominal GI/Abdominal Exam: Non Distended, Soft, Diminished Bowel Sounds Additional GI/Abdominal Exam Details: Dressing is clean and dry and intact. Abdomen is benign with exception of incisional tenderness. - Rectal Rectal Exam: Black Stool, Heme (+) Stool - Neurological Neurological Exam: Alert, Oriented x 3 - Psychiatric Psychiatric Exam: Normal Affect, Normal Mood Assessment and Plan - Patient Problems (1) Status post partial colectomy Current Visit: Yes Status: Acute Priority: High Onset Date: 12/24/16 Comment: Unfortunately he developed a presumed anastomotic bleed. It looks like that has stopped but we'll need to monitor him carefully. We will follow serial hemoglobin and hematocrit levels. I have typed and crossed him for 2 units. If his he H&H dropped further or if he becomes more symptomatic he will need a transfusion. If there is further bleeding we'll need to insert a colonoscope and see if we can find the bleeder and stop it. Again the possibility of operative intervention has been discussed with the patient. Code(s): Z90.49 - Acquired absence of other specified parts of digestive tract (2) Anemia Current Visit: Yes Status: Acute Priority: High Onset Date: ~12/25/16 Comment: His anemia is secondary to acute postoperative blood loss. See above. Continue to monitor. Code(s): D64.9 - Anemia, unspecified Qualifiers: Anemia type: other cause Other causes of anemia: acute posthemorrhagic Qualified Code(s): D62 - Acute posthemorrhagic anemia
[2016-12-26] MEDS ORDERED: FUROSEMIDE 10 MG/1 ML - 2 ML VIAL IVP ONE (13:21)
[2016-12-26 18:02] LABS: Hematocrit [HCT] 27.9 % (42.0-52.0); Hemoglobin [HGB] 9.2 g/dL (14.0-18.0)
[2016-12-27] MEDS: HYDROmorphone 2 MG/1 ML IVP PRN ×7 (00:05→15:22)
[2016-12-27] MEDS: D5-LR + 20mEq KCL 1,000 ML PRIMARY IV SCH ×2 (03:00→14:01)
[2016-12-27 05:20] LABS: BASOPHILS # (AUTO) 0.03 10*3/UL; BASOPHILS % (AUTO) 0.5 % (0-1); EOSINOPHILS % (AUTO) 3.4 % (0-8); Hematocrit [HCT] 24.6 % (42.0-52.0); MEAN CORPUSCULAR HGB CONC 32.5 g/dL (33-37); MEAN CORPUSCULAR VOLUME 89.1 FL (80-90); MEAN PLATELET VOLUME 10.1 FL (7.4-12.2); MONOCYTES % (AUTO) 10.3 % (5-15); NEUTROPHILS # (AUTO) 3.59 10*3/UL; NEUTROPHILS % (AUTO) 61.6 % (50-80); RED BLOOD COUNT 2.76 10^6/uL (4.70-6.10)
[2016-12-27 05:38] LABS: BLOOD UREA NITROGEN 8 mg/dL (7-22); BUN/CREATININE RATIO 11.42 (6-20); SERUM ALBUMIN 2.8 g/dL (3.5-4.8)
[2016-12-27 05:39] LABS: PLATELET MORPHOLOGY COMMENT NORMAL MORPHOLOGY (NORM); RBC MORPHOLOGY COMMENT NORMAL MORPHOLOGY (NORM); WBC MORPHOLOGY COMMENT NORMAL MORPHOLOGY (NORM)
[2016-12-27] MEDS ORDERED: Sodium Chloride 0.9% 500 ML PRIMARY IV ONE (06:33)
[2016-12-27] MEDS ORDERED: Sodium Chloride 0.9% 500 ML ONE (06:46)
[2016-12-27] MEDS: Pantoprazole Inj 40 MG in Normal Saline Flush 10 ML IVP SCH (08:20)
--- NOTE | 2016-12-27 08:56 | PDOC(PROG) ---
Subjective Post Op Day: 3 Pain Management: IV Verde Catheter: Yes Flatus: Yes Diet: NPO Ambulating: Yes Date and Time of Service: 12/27/2016 8:30 AM Interval History: Patient had a bloody bowel movement yesterday morning early. It was 300 mL. His hematocrit stabilized. He had no further bowel movements throughout the day. At 2:30 this morning he had another 175 mL of dark blood. This morning his hemoglobin and hematocrit dropped even further to 8 and 24 respectively. I ordered him to get 2 units of blood. He has received one. The other is being hung now. I discussed with the patient and his that we need to go down to surgery. We will plan a flexible sigmoidoscopy with hopefully control of an anastomotic bleeding. The possibility of an upper endoscopy has been discussed. If we can't control the bleeding he will need an exploratory laparotomy with possible revision of his anastomosis. Both understand and agree to proceed as outlined. Patient has been lightheaded and dizzy. He feels better after one unit. His color looks better. Objective : Data - Labs CBC and BMP: 12/27/16 05:11 12/27/16 05:11 - Vital Signs Vital Signs and I&O: Vital Signs - Last Taken Temperature 98.7 F 12/27/16 08:48 Pulse Rate 57 L 12/27/16 08:48 Respiratory Rate 18 12/27/16 08:48 Blood Pressure 126/61 12/27/16 08:48 Pulse Ox 96 12/27/16 08:48 Intake and Output (24hr x 4 totals) 12/25/16 12/26/16 12/27/16 12/28/16 05:59 05:59 05:59 05:59 Intake Total 5663 / 5663 2969 / 2969 2991 / 2991 604 / 604 Output Total 700 / 700 925 / 925 3225 / 3225 Balance 4963 / 4963 2044 / 2044 -234 / -234 604 / 604 Objective : Exam - General General Appearance: No Acute Distress, Cooperative - Respiratory Respiratory Exam: Clear to Auscultation - Bilaterally, Breathing Non Labored - Cardiovascular Cardiovascular Exam: RRR, No Murmur - GI/Abdominal GI/Abdominal Exam: Normal Bowel Sounds, Non Tender, Non Distended, Soft Assessment and Plan - Patient Problems (1) Status post partial colectomy Current Visit: Yes Status: Acute Priority: High Onset Date: 12/24/16 Comment: Ongoing anastomotic bleeding. Please see history of present illness. Return to the operating room for flexible sigmoidoscopy, possible upper endoscopy, and possible exploratory laparotomy with revision of his anastomosis.The procedure has been discussed with the patient in complete yet simple terms including benefits, risks, and alternatives. All questions have been answered. Informed consent has been obtained. Code(s): Z90.49 - Acquired absence of other specified parts of digestive tract (2) Anemia Current Visit: Yes Status: Acute Priority: High Onset Date: ~12/25/16 Comment: Transfuse 2 units of packed red blood cells and proceed to the operating room. Code(s): D64.9 - Anemia, unspecified Qualifiers: Anemia type: other cause Other causes of anemia: acute posthemorrhagic Qualified Code(s): D62 - Acute posthemorrhagic anemia
[2016-12-27] MEDS ORDERED: NORMAL SALINE 10 ML SYRINGE FLUSH IVP PRN (08:59)
[2016-12-27] MEDS ORDERED: LIDOCAINE W/ SODIUM BICARB 0.5 ML SYR SUBD PRN (08:59)
[2016-12-27] MEDS ORDERED: Ertapenem Inj 1 GM in Sodium Chloride 0.9% 100 ML IV SCH (09:00)
[2016-12-27] MEDS ORDERED: Lactated Ringers 1,000 ML PRIMARY IV SCH (11:00)
[2016-12-27 11:06] LABS: Hematocrit [HCT] 31.9 % (42.0-52.0); Hemoglobin [HGB] 10.6 g/dL (14.0-18.0); MEAN CORPUSCULAR HEMOGLOBIN 28.9 PG (27-31); MEAN CORPUSCULAR HGB CONC 33.2 g/dL (33-37); MEAN CORPUSCULAR VOLUME 86.9 FL (80-90); MEAN PLATELET VOLUME 9.4 FL (7.4-12.2); RED BLOOD COUNT 3.67 10^6/uL (4.70-6.10)
[2016-12-27] MEDS ORDERED: LIDOCAINE 2% VISCOUS(20 MG/1 ML) - 15 ML UD CUP PO ONE (11:39)
[2016-12-27] MEDS ORDERED: PROPOFOL IV ONE (11:39)
[2016-12-27] MEDS ORDERED: fentaNYL Inj 100 MCG/2 ML VIAL ONE (11:40)
[2016-12-27] MEDS ORDERED: MIDAZOLAM 5 MG/1 ML ONE (11:40)
[2016-12-27] MEDS ORDERED: LIDOCAINE W/ SODIUM BICARB 0.5 ML SYR ONE (12:32)
--- NOTE | 2016-12-27 12:48 | CRNA.PROGR ---
Post Anesthesia Phase II - Post Anesthesia Phase II Patient Stable and Discharged To: Phase II Care Assumed By Surgeon: Willy Gonzalez MD Temperature: 99.1 F Pulse Rate: 55 Respiratory Rate: 18 Blood Pressure: 127/69 Pulse Ox: 99 Total Jonel Score at Discharge: 10 Post Anesthesia Discharge Criteria Met: Yes
--- NOTE | 2016-12-27 12:49 | CRNA.PROGR ---
Anesthesia Time - - Start date: 12/27/16 End date: 12/27/16 - Procedure/Recovery Time Anesthesia : Time In: 11:30 Anesthesia : Time Out: 12:27 Anesthesia : Total Time: 57 - Total Anesthesia Time Total Anesthesia Time (minutes): 57 - Other Weight: 76.657 kg Height: 5 ft 9 in Body Mass Index (BMI): 24.9 Physical Status: P2 Anesthesia Type: MAC
--- NOTE | 2016-12-27 12:51 | GEN.OPNOTE ---
EGD / Colonoscopy Report Surgery Date: 12/27/16 Preoperative Diagnosis: Postoperative GI bleed. Postoperative Diagnosis: Postoperative GI bleed-anastomotic. Procedure: Incomplete colonoscopy to the proximal transverse colon. Esophagogastroduodenoscopy. Surgeon: Willy Gonzalez MD Anesthesia Provider: Emeterio Boyle CRNA Anesthesia Type: MAC Indications: Patient had a low anterior resection with primary anastomosis on Saturday. He passed a bloody stool Saturday a.m. and Saturday afternoon and evening. He passed one Saturday morning but not again until early morning. His hemoglobin and hematocrit decreased. It was unclear whether he had ongoing bleeding or he was equilibrating but I opted to take him for endoscopy to evaluate his presumed anastomotic bleed. Patient was given 2 units of packed red blood cells this morning. His hemoglobin was 10.6 and hematocrit was 31.6. PT and INR as well as PTT were normal. EGD Findings: Esophagus: [Normal] GE Junction : [Normal] Fundus : [Normal] Body : [Normal] Prepyloric : [Normal] Small Intestine : [Normal] A lubricated flexible upper endoscope was inserted passed through the esophagus and stomach into the duodenum. There was no blood seen anywhere in the upper GI tract. No pathology was seen. The scope was withdrawn completing the procedure. Colonsocopy Findings: Prep : [Lots of old dark blood. No bright red blood.] Cecum : [Not visualized] Ascending : [Did not visualize] Transverse : [Old dark blood. No evidence of acute bleeding.] Sigmoid : [No diverticuli seen. Old dark blood. No evidence of acute bleeding. ] Rectum : [Dark blood. Anastomosis at 16 cm from the anal verge. Some clot but no active bleeding.] Digital Rectal Exam : [Dark blood no bright red blood] A lubricated flexible colonoscope was inserted and passed into the colon. A lot of clot in the rectum and distal sigmoid was cleared with an frame gate mortiser operator and appropriate suctioning. I reach the anastomosis. All the clot and old blood was cleared with appropriate irrigation and suctioning. The anastomosis was visualized in its entirety. There was no active bleeding. The scope was advanced through the anastomosis and easily into the proximal transverse colon. Irrigation and suctioning were used to clear as much clot and old blood as possible. The scope was withdrawn slowly removing the air. The anastomosis was again inspected and there was no evidence of active bleeding. Air and blood and clot were removed as much as possible. The scope was withdrawn completing the procedure. This appears to be an anastomotic bleeding. There is no evidence of active bleeding. We will monitor the patient carefully and continue conservative therapy. No indication for operative intervention at this time
[2016-12-27] MEDS: HYDROcodone-APAP 5 MG -325 MG TABLET PO PRN ×2 (13:48→17:52)
[2016-12-27] MEDS ORDERED: Sodium Chloride 0.9% 500 ML IV ONE (18:10)
--- NOTE | 2016-12-27 18:32 | EKG ---
[address] [address] Measurements Intervals [place] Rate: 88 P: 48 CA: 128 QRS: 66 QRSD: 106 T: 40 QT: 361 QTc: 407 Interpretive Statements SINUS RHYTHM NONSPECIFIC T-WAVE ABNORMALITY INTERPRETATION BASED ON A DEFAULT AGE OF 40 YEARS Compared to ECG 07/18/2015 10:29:27 T-wave abnormality now present Sinus bradycardia no longer present Electronically Signed On 12-28-16 08:12:02 MDT by Hussein Pinon MD [email or web address]
[2016-12-27 18:47] LABS: Hematocrit [HCT] 31.9 % (42.0-52.0); Hemoglobin [HGB] 10.9 g/dL (14.0-18.0)
[2016-12-27] MEDS: Sodium Chloride 0.9% 1,000 ML IV SCH (19:00)
[2016-12-28] MEDS: HYDROcodone-APAP 5 MG -325 MG TABLET PO PRN ×4 (00:18→12:26)
[2016-12-28] MEDS: HYDROmorphone 2 MG/1 ML IVP PRN ×2 (02:07→07:10)
[2016-12-28 04:06] LABS: BASOPHILS # (AUTO) 0.02 10*3/UL; BASOPHILS % (AUTO) 0.2 % (0-1); EOSINOPHILS # (AUTO) 0.18 10*3/UL; EOSINOPHILS % (AUTO) 2.1 % (0-8); Hematocrit [HCT] 29.5 % (42.0-52.0); Hemoglobin [HGB] 9.9 g/dL (14.0-18.0); LYMPHOCYTES # (AUTO) 0.97 10*3/uL; MEAN CORPUSCULAR HEMOGLOBIN 28.9 PG (27-31); MEAN CORPUSCULAR HGB CONC 33.6 g/dL (33-37); MEAN CORPUSCULAR VOLUME 86.3 FL (80-90); MEAN PLATELET VOLUME 9.7 FL (7.4-12.2); MONOCYTES # (AUTO) 0.54 10*3/UL (0.3-0.8); MONOCYTES % (AUTO) 6.4 % (5-15); NEUTROPHILS # (AUTO) 6.76 10*3/UL; NEUTROPHILS % (AUTO) 79.7 % (50-80); RED BLOOD COUNT 3.42 10^6/uL (4.70-6.10)
[2016-12-28] MEDS: Sodium Chloride 0.9% 1,000 ML IV SCH ×2 (04:15→18:58)
[2016-12-28 04:16] LABS: PLATELET MORPHOLOGY COMMENT NORMAL MORPHOLOGY (NORM); RBC MORPHOLOGY COMMENT NORMAL MORPHOLOGY (NORM); WBC MORPHOLOGY COMMENT NORMAL MORPHOLOGY (NORM)
[2016-12-28 04:35] LABS: BLOOD UREA NITROGEN 9 mg/dL (7-22); BUN/CREATININE RATIO 11.25 (6-20)
[2016-12-28] MEDS: PANTOPRAZOLE 40 MG TABLET PO SCH (07:09)
--- NOTE | 2016-12-28 12:27 | PDOC(PROG) ---
Subjective Post Op Day: postop day 4 Pain Management: PO Verde Catheter: No Flatus: Yes Diet: Clear Liquids Date and Time of Service: 12/28/2016 at 12:30 Interval History: Patient states he's feeling fine having no problems. Last night he had 100 mL of old blood. Today's had brown stools. He had tachycardic yesterday. EKG was sinus rhythm. Hemoglobin at that time was 10.6. His hemoglobin on the a.m. dry was 9.9. Again there is been no further bloody stools since early this morning. Objective : Data - Labs CBC and BMP: 12/28/16 04:02 12/28/16 04:02 - Vital Signs Vital Signs and I&O: Vital Signs - Last Taken Temperature 98.3 F 12/28/16 07:03 Pulse Rate 63 12/28/16 11:46 Respiratory Rate 16 12/28/16 07:27 Blood Pressure 125/65 12/28/16 07:03 Pulse Ox 96 12/28/16 07:03 Intake and Output (24hr x 4 totals) 12/26/16 12/27/16 12/28/16 12/29/16 05:59 05:59 05:59 05:59 Intake Total 2969 / 2969 2991 / 2991 5104 / 5104 Output Total 925 / 925 3225 / 3225 3200 / 3200 450 / 450 Balance 2044 / 2044 -234 / -234 1904 / 1904 -450 / -450 Objective : Exam - General General Appearance: No Acute Distress, Cooperative - Eye Eye Exam: PERRL, EOMI - Respiratory Respiratory Exam: Clear to Auscultation - Bilaterally, Breathing Non Labored - Cardiovascular Cardiovascular Exam: RRR, No Murmur - GI/Abdominal GI/Abdominal Exam: Normal Bowel Sounds, Non Tender, Non Distended, Soft Assessment and Plan - Patient Problems (1) Status post partial colectomy Current Visit: Yes Status: Acute Priority: High Onset Date: 12/24/16 Code(s): Z90.49 - Acquired absence of other specified parts of digestive tract - Assessment / Plan Additional Assessment/Plan Details: At the present time, it appears that his anastomotic hemorrhage has stopped. Will keep him on a clear liquid diet. Check H&H in morning. If the patient should have further bloody stools will get a repeat H&H.
[2016-12-28] MEDS ORDERED: Acetaminophen 1000mg Inj 1,000 MG/100 ML VIAL IV ONE (13:30)
[2016-12-28] MEDS: oxyCODONE/APAP 7.5/325 Tab 1 TAB TAB PO PRN ×2 (18:57→22:47)
[2016-12-29] MEDS: oxyCODONE/APAP 7.5/325 Tab 1 TAB TAB PO PRN ×5 (03:06→19:55)
[2016-12-29 03:36] LABS: BASOPHILS # (AUTO) 0.02 10*3/UL; BASOPHILS % (AUTO) 0.4 % (0-1); EOSINOPHILS # (AUTO) 0.24 10*3/UL; EOSINOPHILS % (AUTO) 4.8 % (0-8); Hematocrit [HCT] 30.5 % (42.0-52.0); Hemoglobin [HGB] 10.5 g/dL (14.0-18.0); LYMPHOCYTES # (AUTO) 0.91 10*3/uL; MEAN CORPUSCULAR HEMOGLOBIN 29.6 PG (27-31); MEAN CORPUSCULAR HGB CONC 34.4 g/dL (33-37); MEAN CORPUSCULAR VOLUME 85.9 FL (80-90); MEAN PLATELET VOLUME 9.2 FL (7.4-12.2); MONOCYTES # (AUTO) 0.47 10*3/UL (0.3-0.8); MONOCYTES % (AUTO) 9.4 % (5-15); NEUTROPHILS # (AUTO) 3.35 10*3/UL; RED BLOOD COUNT 3.55 10^6/uL (4.70-6.10)
[2016-12-29 03:37] LABS: PLATELET MORPHOLOGY COMMENT NORMAL MORPHOLOGY (NORM); RBC MORPHOLOGY COMMENT NORMAL MORPHOLOGY (NORM); WBC MORPHOLOGY COMMENT NORMAL MORPHOLOGY (NORM)
[2016-12-29] MEDS: PANTOPRAZOLE 40 MG TABLET PO SCH (06:34)
--- NOTE | 2016-12-29 11:09 | PDOC(PROG) ---
Subjective Post Op Day: postop day 5 Pain Management: PO Verde Catheter: No Flatus: Yes Diet: Clear Liquids Date and Time of Service: 12/29/2016 at 1110 Interval History: Patient states he is doing a lot better. His nausea stops and switching to Percocet. He had of loose brown stool today Objective : Data - Labs CBC and BMP: 12/29/16 03:15 12/28/16 04:02 - Vital Signs Vital Signs and I&O: Vital Signs - Last Taken Temperature 98.4 F 12/29/16 08:05 Pulse Rate 67 12/29/16 08:05 Respiratory Rate 20 12/29/16 08:05 Blood Pressure 149/68 12/29/16 08:05 Pulse Ox 94 12/29/16 08:05 Intake and Output (24hr x 4 totals) 12/27/16 12/28/16 12/29/16 12/30/16 05:59 05:59 05:59 05:59 Intake Total 2991 / 2991 5104 / 5104 2740 / 2740 Output Total 3225 / 3225 3200 / 3200 2550 / 2550 400 / 400 Balance -234 / -234 1904 / 1904 190 / 190 -400 / -400 Objective : Exam - General General Appearance: No Acute Distress, Cooperative - GI/Abdominal GI/Abdominal Exam: Normal Bowel Sounds, Non Tender, Non Distended Assessment and Plan - Patient Problems (1) Status post partial colectomy Current Visit: Yes Status: Acute Priority: High Onset Date: 12/24/16 Code(s): Z90.49 - Acquired absence of other specified parts of digestive tract - Assessment / Plan Additional Assessment/Plan Details: Patient is doing very well. It appears that his anastomotic hemorrhage has stopped. Hemoglobins up to 10.5 today. He no longer is nauseated since switching to Percocet. Will advance his diet today. Stop IV pain medication. If he tolerates regular food discharge in a.m.
[2016-12-30] MEDS: oxyCODONE/APAP 7.5/325 Tab 1 TAB TAB PO PRN ×4 (00:25→12:09)
[2016-12-30] MEDS: PANTOPRAZOLE 40 MG TABLET PO SCH (07:38)
[2016-12-30 08:56] VITALS: BP 139/72; RESP 20; TEMP 97.7; O2SAT 95
--- NOTE | 2016-12-30 11:33 | DCSUMMARY ---
Discharge Summary Admit Date: 12/24/16 Discharge Date: 12/30/16 Admitting Diagnosis: history diverticulitis Discharge Diagnosis: History diverticulitis. Postoperative hemorrhage Primary Surgery and Date: 12/24/2016 for sigmoid colectomy Other Surgery and Date: 12/30/2016 sigmoidoscopy Hospital Course: Patient is noted on 12/24/2016 for sigmoid colectomy with low anterior repair. Patient went underwent an uncomplicated surgery. First postoperative day the patient had the bloody stool. He is hemodynamically stable. He progressively Having bloody stools active and also needed a 2 unit blood transfusion. He was taken to the endoscopy suite on 12/30/2016 for reflux will sigmoidoscopy area that point he had some old blood in the colon but no active bleeding could be seen. Anastomosis appeared be good. He continued to remain hemodynamically stable and his hemoglobin stabilized and started to increase at 10.6. He was started on diet tolerated diet. He recovered to the point we discharged on Exam - Vitals Vital Signs: Vital Signs Temperature 97.7 F Temperature Source Oral Pulse Rate [Apical] 74 Pulse Rate [Pulse Oximeter] 71 Pulse Rate 63 Respiratory Rate 20 Blood Pressure [Right Arm] 139/72 Blood Pressure [Left Arm] 136/65 Blood Pressure 127/69 Pulse Ox 95 Oxygen Flow Rate 1 Oxygen Delivery Method Room Air Height 5 ft 9 in Weight 162 lb 3.2 oz - General General Appearance: No Acute Distress, Cooperative - Eye Eye Exam: POSITIVE: PERRL, EOMI - GI/Abdominal GI/Abdominal Exam: POSITIVE: Normal Bowel Sounds, Non Tender, Non Distended, Soft Data Perinent Studies: 12/27/16 12/27/16 12/27/16 05:11 11:04 18:45 WBC 5.83 6.13 RBC 2.76 L 3.67 L Hgb 8.0 L 10.6 L 10.9 L Hct 24.6 L 31.9 L 31.9 L MCV 12/28/16 12/29/16 04:02 03:15 WBC 5.00 RBC 3.55 L Hgb 9.9 L 10.5 L Hct 29.5 L 30.5 L MCV 86.3 Patient Problems - Patient Problem List (1) Status post partial colectomy Current Visit: Yes Status: Acute Onset Date: 12/24/16 Priority: High Code(s): Z90.49 - Acquired absence of other specified parts of digestive tract Category: Medical
== END 2016-12-30 12:15 | disposition home or self-care (01) | DRG 331 ==
LOC: OPS 09:57 → MED/SURG 15:28 → OPS 12-27 10:53 → MED/SURG 12-27 12:45
PROVIDERS: ADMIT Surgery; ATTEND Surgery